=== PATIENT | female | born 1990 | race American Indian/Alaskan Native ===

== ENCOUNTER 2017-08-01 13:37 | Observation (INO) | payer OTHER ==
[2017-08-01 13:39] VITALS: BMI 28.3
[2017-08-01] MEDS ORDERED: Sodium Chloride 0.9% 1,000 ML IV STA (14:13)
[2017-08-01] MEDS ORDERED: Iohexol 350 MG/100 ML VIAL ONE (14:36)
--- NOTE | 2017-08-01 14:44 | ED PDOC ---
Arrival/HPI - General Historian: Patient EM Caveat: Uncooperative <Navi Rangel - Last Filed: 08/01/17 22:29> <Reuben Monroe DO - Last Filed: 08/01/17 22:38> - General Chief Complaint: GI Problem Time Seen by Provider: 08/01/17 14:02 - History of Present Illness Narrative History of Present Illness (Text): 08/01/17 14:39 27F presents to [facility] w/ continuous nausea, vomiting since 07/24/17. Patient was admitted in [place] on the . During that time they did 2 CT scans and Abx and discharged in stable condition on 07/30/17. Patient then had continued nausea and non-bloody, non-bilious vomiting, and loose stool. Patient states the only thing that has been able to help is Morphine. Denies: Fevers, Chills, chest pain, shortness of breath, numbness/tingling in extremities PMH: Denies PSH: none ALL: PCN Social: has 3 kids. smokes 1/2 ppd for >5 years. Daily marijuana use. denies other recreational drug use Vital signs reviewed: vital signs normal. No tachy or HTN (Navi Rangel) Past Medical History - Provider Review Nursing Documentation Reviewed: Yes - Travel History Have you recently traveled outside [place] w/in the past 3 mons?: No - Cardiac Hx Cardiac Disorders: No - Pulmonary Hx Respiratory Disorders: No - Neurological Hx Neurological Disorder: No - HEENT Hx HEENT Disorder: No - Renal Hx Renal Disorder: No - Endocrine/Metabolic Hx Endocrine Disorders: No - Hematological/Oncological Hx Blood Disorders: No - Integumentary Hx Dermatological Disorder: No - Musculoskeletal/Rheumatological Hx Musculoskeletal Disorders: No - Gastrointestinal Hx Gastrointestinal Disorders: Yes Hx Gastritis: Yes - Genitourinary/Gynecological Hx Genitourinary Disorders: No - Psychiatric Hx Psychophysiologic Disorder: No Hx Substance Use: Yes <Navi Rangel - Last Filed: 08/01/17 22:29> Family/Social History - Physician Review Nursing Documentation Reviewed: Yes Family/Social History: No Known Family HX Smoking Status: Light Smoker < 10 Cigarettes Daily Hx Alcohol Use: No Hx Substance Use: Yes Substance used: marijuana <Navi Rangel - Last Filed: 08/01/17 22:29> Allergies/Home Meds <Christal Rangeln - Last Filed: 08/01/17 22:29> <Reuben Monroe DO - Last Filed: 08/01/17 22:38> Allergies/Adverse Reactions: Allergies Penicillins Allergy (Verified 08/01/17 13:40) RASH Home Medications: Home Meds Medication Instructions Recorded Confirmed No Known Home Med 08/01/17 08/01/17 Review of Systems - Review of Systems Constitutional: Normal Eyes: Normal ENT: Normal Respiratory: Normal Cardiovascular: Normal Gastrointestinal: Abdominal Pain, Diarrhea, Nausea, Vomiting Genitourinary Female: Normal Musculoskeletal: Normal Skin: Normal Neurological: Normal <Ana Rangelsan - Last Filed: 08/01/17 22:29> Physical Exam Vital Signs Reviewed: Yes Temperature: Afebrile Blood Pressure: Normal Pulse: Regular Respiratory Rate: Normal Appearance: Positive for: Well-Appearing, Non-Toxic, Uncomfortable Pain Distress: Moderate Mental Status: Positive for: Alert and Oriented X 3 - Systems Exam Head: Present: Atraumatic, Other (hyperpigmentation malar ) Pupils: Present: PERRL Extroacular Muscles: Present: EOMI Conjunctiva: Present: Normal Mouth: Present: Moist Mucous Membranes Neck: Present: Normal Range of Motion Respiratory/Chest: Present: Clear to Auscultation, Good Air Exchange. No: Respiratory Distress, Accessory Muscle Use Cardiovascular: Present: Regular Rate and Rhythm, Normal S1, S2. No: Murmurs Abdomen: Present: Tenderness, Normal Bowel Sounds, Rebound, Other (Voluntary guarding). No: Distention, Peritoneal Signs Upper Extremity: Present: Normal Inspection, NORMAL PULSES, Capillary Refill < 2s Lower Extremity: Present: Normal Inspection, NORMAL PULSES Neurological: Present: GCS=15, Speech Normal Skin: Present: Warm Psychiatric: Present: Alert, Oriented x 3 <Ana Rangelsan - Last Filed: 08/01/17 22:29> Vital Signs Temp Pulse Resp BP Pulse Ox 08/01/17 20:05 76 18 130/90 98 08/01/17 17:00 66 18 138/71 100 08/01/17 15:57 64 18 142/78 100 08/01/17 13:37 97.9 F 62 18 144/89 100 Medical Decision Making Re-evaluation Time: 16:00 (Patient is sleeping upon re-exmination, resting comfortably) <Navi Rangel - Last Filed: 08/01/17 22:29> <Reuben Monroe DO - Last Filed: 08/01/17 22:38> ED Course and Treatment: 08/01/17 14:[address] scan Kevin Alonzo (Navi Rangel) - Lab Interpretations Lab Results: 08/01/17 14:30 08/01/17 14:30 Lab Results 08/01/17 15:00: Urine Opiates Screen Negative, Urine Methadone Screen Negative, Ur Barbiturates Screen Negative, Ur Phencyclidine Scrn Negative, Ur Amphetamines Screen Negative, U Benzodiazepines Scrn Negative, U Oth Cocaine Metabols Negative, U Cannabinoids Screen Positive H 08/01/17 14:30: Sodium 144, Potassium 3.4 L, Chloride 103, Carbon Dioxide 27, Anion Gap 17, BUN 5 L, Creatinine 0.8, Est GFR ( Amer) > 60, Est GFR (Non -Af Amer) > 60, Random Glucose 117 H, Calcium 10.3, Total Bilirubin 0.3, AST 54 H, ALT 48, Alkaline Phosphatase 70, Total Protein 8.2, Albumin 4.3, Globulin 4.0 , Albumin/Globulin Ratio 1.1, Lipase 42 08/01/17 14:30: Urine Color Yellow, Urine Appearance Clear, Urine pH 8.5, Ur Specific [place] 1.015, Urine Protein Negative, Urine Glucose (UA) Negative, Urine Ketones Trace H, Urine Blood Negative, Urine Nitrate Negative, Urine Bilirubin Negative, Urine Urobilinogen 0.2, Ur Leukocyte Esterase Negative 08/01/17 14:30: WBC 8.1, RBC 4.54, Hgb 12.9, Hct 38.7, MCV 85.2, MCH 28.4, MCHC 33.3, RDW 13.4, Plt Count 425, MPV 8.8, Gran % 69.7 H, Lymph % (Auto) 24.3, [place] % (Auto) 4.1, Eos % (Auto) 1.5, Baso % (Auto) 0.4, Gran # 5.63, Lymph # ( Auto) 2.0, [place] # (Auto) 0.3, Eos # (Auto) 0.1, Baso # (Auto) 0.03 - RAD Interpretation Narrative RAD Interpretations (Text): 08/01/17 22:[address] scan of abdomen: shows old contrast in appendix. Scan was read as possible multiple appendicoliths, and need to rule out appendicitis. (Navi Rangel) Radiology Orders: 08/01/17 18:54 ABD & PELVIS W/O PO OR IV CONT [CT] Stat - Medication Orders Current Medication Orders: Hydromorphone HCl (Dilaudid) 0.5 mg IVP Q4H PRN PRN Reason: Pain, severe (8-10) Last Admin: 08/01/17 21:40 Dose: 0.5 mg MAR Pain Assessment Document 08/01/17 21:40 RD (Rec: 08/01/17 21:40 RD [id number]) Pain Reassessment Is this a pain reassessment? No Sleep Is patient sleeping during reassessment? No Presence of Pain Presence of Pain Yes IVP Administration Document 08/01/17 21:40 RD (Rec: 08/01/17 21:40 RD [id number]) Charges for Administration # of IVP Administrations 1 Ciprofloxacin (Cipro 200mg/100ml D5w) 100 mls @ 67 mls/hr IVPB Q12 ELIJAH PRN Reason: Protocol Stop: 08/02/17 00:00 Metronidazole (Flagyl) 250 mg in 50 mls @ 100 mls/hr IVPB Q8 ELIJAH PRN Reason: Protocol Stop: 08/06/17 22:31 Sodium Chloride (Sodium Chloride 0.9%) 1,000 mls @ 100 mls/hr IV .Q10H ELIJAH Ondansetron HCl (Zofran Inj) 4 mg IVP Q4 PRN PRN Reason: Nausea/Vomiting Discontinued Medications Famotidine (Pepcid) 20 mg IVP STAT STA Stop: 08/01/17 14:18 Last Admin: 08/01/17 14:40 Dose: 20 mg IVP Administration Document 08/01/17 14:40 MS (Rec: 08/01/17 14:40 MS [id number]) Charges for Administration # of IVP Administrations 1 Sodium Chloride (Sodium Chloride 0.9%) 1,000 mls @ 1,000 mls/hr IV .Q1H STA Stop: 08/01/17 15:12 Last Admin: 08/01/17 14:39 Dose: 1,000 mls/hr eMAR Start Stop Document 08/01/17 14:39 MS (Rec: 08/01/17 14:40 MS [id number]) Intravenous Solution Start Date 08/01/17 Start Time 14:39 End Date 08/01/17 End time 15:39 Total Infusion Time 60 Ondansetron HCl (Zofran Inj) 8 mg IVP STAT STA Stop: 08/01/17 14:14 Last Admin: 08/01/17 14:40 Dose: 8 mg IVP Administration Document 08/01/17 14:40 MS (Rec: 08/01/17 14:40 MS [id number]) Charges for Administration # of IVP Administrations 1 - PA / [employer] / Resident Statement JAVIER has reviewed & agrees with the documentation as recorded. JAVIER has examined the patient and agrees with the treatment plan. <Navi Rangel - Last Filed: 08/01/17 22:29> - PA / [employer] / Resident Statement JAVIER has reviewed & agrees with the documentation as recorded. JAVIER has examined the patient and agrees with the treatment plan. <Reuben Monroe DO - Last Filed: 08/01/17 22:38> Disposition/Present on Arrival - Present on Arrival Any Indicators Present on Arrival: Yes History of DVT/PE: No History of Uncontrolled Diabetes: No Urinary Catheter: No History of Decub. Ulcer: No History Surgical Site Infection Following: None - Disposition Have Diagnosis and Disposition been Completed?: Yes Disposition Time: 22:33 Patient Plan: Admission, Observation <Navi Rangel - Last Filed: 08/01/17 22:29> - Disposition Disposition Time: 21:00 <Reuben Monroe DO - Last Filed: 08/01/17 22:38> - Disposition Diagnosis: Abdominal pain, Appendicitis, unqualified Patient Problems: Current Active Problems Problem Status Onset Abdominal pain Acute Appendicitis, unqualified Acute Condition: STABLE Referrals: Appwapp Alvin Rekiley, [Primary Care Provider] - Follow up with primary Forms: [employer] (Armenian)
[2017-08-01 16:20] LABS: BASO # 0.03 K/mm3 (0.0-2.0); BASO % 0.4 % (0.0-3.0); EOS # 0.1 (0.0-0.7); EOS % 1.5 % (1.5-5.0); GRAN # 5.63 (1.4-6.5); GRAN % 69.7 % (50.0-68.0); HEMOGLOBIN 12.9 g/dL (12.0-16.0); LYMPH % 24.3 % (22.0-35.0); MEAN CELL VOLUME 85.2 fl (80.0-105.0); MEAN CORPUSCULAR HEMOGLOBIN 28.4 pg (25.0-35.0); MEAN CORPUSCULAR HGB CONC 33.3 g/dl (31.0-37.0); MEAN PLATELET VOLUME 8.8 fl (7.0-11.0); MONO # 0.3 (0.1-0.6); MONO % 4.1 % (1.0-6.0); RBC 4.54 10^6/uL (3.5-6.1); RED CELL DISTRIBUTION WIDTH 13.4 % (11.5-14.5); WHITE BLOOD COUNT 8.1 10^3/ul (4.5-11.0)
[2017-08-01 16:21] LABS: PH,URINE 8.5 (4.7-8.0); URINE BILIRUBIN NEGATIVE (NEGATIVE); URINE BLOOD NEGATIVE (NEGATIVE); URINE GLUCOSE (UA) NEGATIVE (NEGATIVE); URINE LEUKOCYTE ESTERASE NEGATIVE Leu/uL (NEGATIVE); URINE NITRATE NEGATIVE (NEGATIVE); URINE PROTEIN NEGATIVE mg/dL (<30 mg/dL); URINE UROBILINOGEN 0.2 E.U./dL (<1 E.U./dL)
[2017-08-01 16:25] LABS: URINE APPEARANCE CLEAR (CLEAR); URINE COLOR YELLOW (YELLOW)
[2017-08-01 16:29] LABS: ALB/GLOB RATIO 1.1 (1.1-1.8); ALBUMIN 4.3 g/dL (3.0-4.8); ALT/SGPT 48 U/L (7-56); AST/SGOT 54 U/L (14-36); BLOOD UREA NITROGEN 5 mg/dL (7-21); CALCIUM 10.3 mg/dL (8.4-10.5); GFR AFRICAN-AMERICAN > 60; GFR NON-AFRICAN AMERICAN > 60; LIPASE 42 U/L (23-300)
[2017-08-01 17:14] LABS: BARBITURATES, UR NEGATIVE (NEGATIVE); BENZODIAZEPINES, UR NEGATIVE (NEGATIVE); OPIATES, UR NEGATIVE (NEGATIVE); PHENCYCLIDINE, UR NEGATIVE (NEGATIVE)
--- NOTE | 2017-08-01 20:08 | CT ---
EXAM: CT Abdomen and Pelvis Without Intravenous Contrast EXAM DATE/TIME: 08/01/2017 6:54 PM CLINICAL HISTORY: The patient age is 27 years old and is female; Pain; Abdominal pain; Generalized; Patient HX: HX gastritis; Additional info: Diffuse abdominal pain Facility exam id and description: Ct abdpelscon abd pelvis w/o po or iv cont TECHNIQUE: Axial computed tomography images of the abdomen and pelvis without intravenous contrast. All CT scans at this facility use one or more dose reduction techniques, viz.: automated exposure control; ma/kV adjustment per patient size (including targeted exams where dose is matched to indication; i.e. head); or iterative reconstruction technique. Coronal and sagittal reformatted images were created and reviewed. COMPARISON: No relevant prior studies available. FINDINGS: Lower thorax: There is a mild to moderate-sized hiatal hernia, with wall thickening of this hernia and the distal esophagus. This wall thickening is likely inflammatory, although additional pathology cannot be excluded. ABDOMEN: Liver: Unremarkable. No mass. Gallbladder and bile ducts: No calcified stones. No ductal dilation. Pancreas: Normal contour. No ductal dilation. Spleen: No splenomegaly. Adrenals: No mass. Kidneys and ureters: No obstructing stones. No hydronephrosis. Stomach and bowel: A gastric diverticulum is visualized posteriorly. Evaluation of the bowel is limited by the absence of oral contrast. Appendix: There is an increase in density within the appendix, consistent with residual prior oral contrast ministration or appendicoliths. There is minimal periappendiceal stranding, without significant appendiceal distention. Early appendicitis cannot be excluded. PELVIS: Bladder: No stones. Reproductive: The uterus is retroverted. ABDOMEN and PELVIS: Intraperitoneal space: A small amount of free fluid is seen within the cul-de-sac. Bones/joints: Mild disc bulging is visualized at L5-S1. Soft tissues: There is diastases of the rectus abdominis musculature with mild eventration of the abdominal wall. Vasculature: No abdominal aortic aneurysm. Lymph nodes: No enlarged lymph nodes. IMPRESSION: 1. There is a mild to moderate-sized hiatal hernia, with wall thickening of this hernia and the distal esophagus. This wall thickening is likely inflammatory, although additional pathology cannot be excluded. 2. There is an increase in density within the appendix, consistent with residual prior oral contrast ministration or appendicoliths. There is minimal periappendiceal stranding, without significant appendiceal distention. Early appendicitis cannot be excluded. Clinical correlation is recommended. 3. A gastric diverticulum is visualized posteriorly. 4. A small amount of free fluid is seen within the cul-de-sac. This can be further evaluated with ultrasound. 5. Incidental/non-acute findings are described above.
[2017-08-01] MEDS ORDERED: HYDROmorphone 0.5 mg/0.5 ml ISec IVP PRN (21:23)
[2017-08-01] MEDS ORDERED: Ciprofloxacin 200mg/100ml D5W 100 ML IVPB SCH (22:30)
[2017-08-01] MEDS: metroNIDAZOLE IV 250mg/50 ml 250 MG/50 ML BAG IVPB SCH (22:50)
--- NOTE | 2017-08-01 23:08 | CP.PCM.HP ---
<Ronn Wallace - Last Filed: 08/02/17 06:19> History of Present Illness - History of Present Illness History of Present Illness: Haroon Limsirisha PGY-1 H&P CC: Abdominal Pain HPI: Patient is a 27 year old female with past medical history of gastroenteritis who presents by private vehicle with complaints of abdominal pain, nausea and vomiting for the past 2 weeks. Patient indicates abdominal pain is diffuse in nature, constant and dull. She indicates pain is worsened with movement and is made better with rest and laying flat. She denies taking any medications for her symptoms. Patient was recently admitted to [place] where according to records [address] scans were preformed. The patient was discharged with antibiotics on 07/30/2017. Patient reports since discharge she has had continued nausea, non-bloody, non-bilious vomiting as well as diarrhea. Patient reports being able to tolerate a liquid diet intermittently. Patient denies blood in her stool as well as vaginal discharge. Date of last menstrual period is 07/19/2017. Patient denies chest pain, shortness of breath, fever, chills, constipation. Of note patient reports fluctuating episodes similar to presenting symptoms for the past 2 years. PMH: Denies PSH: Denies Sochx: Tobacco: 0.5 PPD for past > 5 years ETOH: Denies ID: THC daily, denies IVDA ALL: PCN MEDS: Denies PMD: None Present on Admission - Present on Admission Any Indicators Present on Admission: No Review of Systems - Review of Systems All systems: reviewed and no additional remarkable complaints except (as mentioned in HPI) Past Patient History - Past Social History Smoking Status: Light Smoker < 10 Cigarettes Daily Alcohol: None Drugs: Cannabis - CARDIAC Hx Cardiac Disorders: No - PULMONARY Hx Respiratory Disorders: No - NEUROLOGICAL Hx Neurological Disorder: No - HEENT Hx HEENT Problems: No - RENAL Hx Chronic Kidney Disease: No - ENDOCRINE/METABOLIC Hx Endocrine Disorders: No - HEMATOLOGICAL/ONCOLOGICAL Hx Blood Disorders: No - INTEGUMENTARY Hx Dermatological Problems: No - MUSCULOSKELETAL/RHEUMATOLOGICAL Hx Musculoskeletal Disorders: No - GASTROINTESTINAL Hx Gastrointestinal Disorders: Yes Hx Gastritis: Yes - GENITOURINARY/GYNECOLOGICAL Hx Genitourinary Disorders: No - PSYCHIATRIC Hx Psychophysiologic Disorder: No Hx Substance Use: Yes - SURGICAL HISTORY Hx Surgeries: No Meds Allergies/Adverse Reactions: Allergies Allergy/AdvReac Type Severity Reaction Status Date / Time Penicillins Allergy RASH Verified 08/01/17 13:40 Physical Exam - Constitutional Appears: Non-toxic - Head Exam Head Exam: ATRAUMATIC, NORMAL INSPECTION, NORMOCEPHALIC - Eye Exam Eye Exam: EOMI, PERRL - ENT Exam ENT Exam: Mucous Membranes Dry - Neck Exam Neck exam: Positive for: Full Rom - Respiratory Exam Respiratory Exam: Clear to Auscultation Bilateral, NORMAL BREATHING PATTERN. absent: Rales, Rhonchi, Wheezes - Cardiovascular Exam Cardiovascular Exam: REGULAR RHYTHM, +S1, +S2 - GI/Abdominal Exam GI & Abdominal Exam: Guarding (voluntary ), Normal Bowel Sounds, Soft, Tenderness (diffuse ). absent: Distended, Rigid - Extremities Exam Extremities exam: Positive for: normal inspection, pedal pulses present - Back Exam Back exam: NORMAL INSPECTION. absent: CVA tenderness (L), CVA tenderness (R) - Neurological Exam Neurological exam: Alert, Oriented x3 Additional comments: Motor and sensory grossly intact, patient able to follow simple commands, able to move all four extremities past midline - Psychiatric Exam Psychiatric exam: Normal Affect, Normal Mood - Skin Skin Exam: Dry, Intact Results - Vital Signs Recent Vital Signs: Last Vital Signs Temp 97.9 F 08/01/17 13:37 Pulse 71 08/01/17 22:39 Resp 18 08/01/17 22:39 BP 131/87 08/01/17 22:39 Pulse Ox 99 08/01/17 22:39 - Labs Result Diagrams: 08/01/17 14:30 08/01/17 14:30 Labs: Laboratory Results - last 24 hr 08/01/17 08/01/17 08/01/17 14:30 14:30 14:30 WBC 8.1 RBC 4.54 Hgb 12.9 Hct 38.7 MCV 85.2 MCH 28.4 MCHC 33.3 RDW 13.4 Plt Count 425 MPV 8.8 Gran % 69.7 H Lymph % (Auto) 24.3 [place] % (Auto) 4.1 Eos % (Auto) 1.5 Baso % (Auto) 0.4 Gran # 5.63 Lymph # (Auto) 2.0 [place] # (Auto) 0.3 Eos # (Auto) 0.1 Baso # (Auto) 0.03 Sodium 144 Potassium 3.4 L Chloride 103 Carbon Dioxide 27 Anion Gap 17 BUN 5 L Creatinine 0.8 Est GFR ( Amer) > 60 Est GFR (Non-Af Amer) > 60 Random Glucose 117 H Calcium 10.3 Total Bilirubin 0.3 AST 54 H ALT 48 Alkaline Phosphatase 70 Total Protein 8.2 Albumin 4.3 Globulin 4.0 Albumin/Globulin Ratio 1.1 Lipase 42 Urine Color Yellow Urine Appearance Clear Urine pH 8.5 Ur Specific [place] 1.015 Urine Protein Negative Urine Glucose (UA) Negative Urine Ketones Trace H Urine Blood Negative Urine Nitrate Negative Urine Bilirubin Negative Urine Urobilinogen 0.2 Ur Leukocyte Esterase Negative Urine Opiates Screen Urine Methadone Screen Ur Barbiturates Screen Ur Phencyclidine Scrn Ur Amphetamines Screen U Benzodiazepines Scrn U Oth Cocaine Metabols U Cannabinoids Screen 08/01/17 15:00 WBC RBC Hgb Hct MCV MCH MCHC RDW Plt Count MPV Gran % Lymph % (Auto) [place] % (Auto) Eos % (Auto) Baso % (Auto) Gran # Lymph # (Auto) [place] # (Auto) Eos # (Auto) Baso # (Auto) Sodium Potassium Chloride Carbon Dioxide Anion Gap BUN Creatinine Est GFR ( Amer) Est GFR (Non-Af Amer) Random Glucose Calcium Total Bilirubin AST ALT Alkaline Phosphatase Total Protein Albumin Globulin Albumin/Globulin Ratio Lipase Urine Color Urine Appearance Urine pH Ur Specific [place] Urine Protein Urine Glucose (UA) Urine Ketones Urine Blood Urine Nitrate Urine Bilirubin Urine Urobilinogen Ur Leukocyte Esterase Urine Opiates Screen Negative Urine Methadone Screen Negative Ur Barbiturates Screen Negative Ur Phencyclidine Scrn Negative Ur Amphetamines Screen Negative U Benzodiazepines Scrn Negative U Oth Cocaine Metabols Negative U Cannabinoids Screen Positive H Assessment & Plan - Assessment and Plan (Free Text) Assessment: 27 year old female with past medical history that includes gastroenteritis who presents by private vehicle complaining of abdominal pain ongoing for past few weeks. Patient evaluated in ED and abdominal CT showing increased density within appendix with suspicious for appendicitis. General surgery has been consulted. Patient will be admitted for further medical management and observation. Plan: 1. Abdominal Pain - Etiology: Gastroenteritis vs. appendicitis vs. PID - Abdominal CT without contrast showign old contrast in appendix, read showing suspicion for appendicitis, negative for intra abdominal adhesions - Patient refused abd CT with PO and IV contrast - General surgey consulted, recs appreciated - Continue with NPO, IVF, Cipro, flagyl, analgesics - UA showing trace ketone, negative for nitrate and leuk est - Denies history of STD - Protonix 2. Hypokalemia - 3.4 on admission - asymptomatic, continue to monitor - 20 potassium meQ DVT ppx: SCD GI PPx: Protonix Case and plan discussed and reviewed with attending - Date & Time Date: 08/01/17 Time: 23:32 <Jose Juan Iqbal Eri - Last Filed: 08/03/17 05:48> Results - Vital Signs Recent Vital Signs: Last Vital Signs Temp 98.6 F 08/02/17 16:48 Pulse 58 L 08/02/17 16:48 Resp 20 08/02/17 16:48 BP 118/76 08/02/17 16:48 Pulse Ox 99 08/02/17 16:48 - Labs Result Diagrams: 08/02/17 07:00 08/02/17 07:00 Labs: Laboratory Results - last 24 hr 08/02/17 08/02/17 08/02/17 07:00 07:00 07:00 WBC 9.2 RBC 3.80 Hgb 10.5 L D Hct 32.4 L MCV 85.3 MCH 27.6 MCHC 32.4 RDW 13.7 Plt Count 350 MPV 8.5 Gran % 53.6 Lymph % (Auto) 37.1 H [place] % (Auto) 7.2 H Eos % (Auto) 1.8 Baso % (Auto) 0.3 Gran # 4.92 Lymph # (Auto) 3.4 [place] # (Auto) 0.7 H Eos # (Auto) 0.2 Baso # (Auto) 0.03 PT 17.4 H INR 1.50 H Sodium 137 Potassium 2.9 L* Chloride 101 Carbon Dioxide 28 Anion Gap 11 BUN 6 L Creatinine 0.7 Est GFR ( Amer) > 60 Est GFR (Non-Af Amer) > 60 Random Glucose 90 Lactic Acid Calcium 8.7 Total Bilirubin 0.2 AST 54 H ALT 46 Alkaline Phosphatase 47 Total Protein 6.3 Albumin 3.1 Globulin 3.2 Albumin/Globulin Ratio 1.0 L 08/02/17 19:20 WBC RBC Hgb Hct MCV MCH MCHC RDW Plt Count MPV Gran % Lymph % (Auto) [place] % (Auto) Eos % (Auto) Baso % (Auto) Gran # Lymph # (Auto) [place] # (Auto) Eos # (Auto) Baso # (Auto) PT INR Sodium Potassium Chloride Carbon Dioxide Anion Gap BUN Creatinine Est GFR ( Amer) Est GFR (Non-Af Amer) Random Glucose Lactic Acid 0.6 L Calcium Total Bilirubin AST ALT Alkaline Phosphatase Total Protein Albumin Globulin Albumin/Globulin Ratio
[2017-08-01] MEDS: Sodium Chloride 0.9% 1,000 ML IV SCH (23:12)
[2017-08-01] MEDS ORDERED: Morphine 4 mg/ml ISec IVP PRN (23:26)
[2017-08-02] MEDS: Morphine 4 mg/ml ISec IVP PRN ×5 (01:23→20:34)
[2017-08-02] MEDS: metroNIDAZOLE IV 250mg/50 ml 250 MG/50 ML BAG IVPB SCH (06:13)
[2017-08-02 07:36] VITALS: RESP 20
[2017-08-02 07:40] LABS: BASO # 0.03 K/mm3 (0.0-2.0); BASO % 0.3 % (0.0-3.0); EOS # 0.2 (0.0-0.7); EOS % 1.8 % (1.5-5.0); GRAN # 4.92 (1.4-6.5); GRAN % 53.6 % (50.0-68.0); LYMPH # 3.4 (1.2-3.4); LYMPH % 37.1 % (22.0-35.0); MEAN CELL VOLUME 85.3 fl (80.0-105.0); MEAN CORPUSCULAR HEMOGLOBIN 27.6 pg (25.0-35.0); MEAN CORPUSCULAR HGB CONC 32.4 g/dl (31.0-37.0); MEAN PLATELET VOLUME 8.5 fl (7.0-11.0); MONO # 0.7 (0.1-0.6); MONO % 7.2 % (1.0-6.0); RBC 3.8 10^6/uL (3.5-6.1); RED CELL DISTRIBUTION WIDTH 13.7 % (11.5-14.5); WHITE BLOOD COUNT 9.2 10^3/ul (4.5-11.0)
[2017-08-02 07:41] LABS: HEMOGLOBIN 10.5 g/dL (12.0-16.0); INR 1.5 (0.93-1.08); PROTHROMBIN TIME 17.4 SECONDS (9.4-12.5)
[2017-08-02 07:59] LABS: ALBUMIN 3.1 g/dL (3.0-4.8); ALT/SGPT 46 U/L (7-56); AST/SGOT 54 U/L (14-36); BLOOD UREA NITROGEN 6 mg/dL (7-21); CALCIUM 8.7 mg/dL (8.4-10.5); GFR AFRICAN-AMERICAN > 60; GFR NON-AFRICAN AMERICAN > 60
[2017-08-02] MEDS ORDERED: Potassium Chloride 20 mEq ER Tab PO STA (08:17)
--- NOTE | 2017-08-02 08:56 | CP.PCM.CON ---
<Radha Schneider - Last Filed: 08/02/17 10:24> History of Present Illness - History of Present Illness History of Present Illness: Surgery HPI: Patient is a 27 year old female with past medical history of gastroenteritis who presents with complaints of abdominal pain, nausea and vomiting for the past 2 weeks. Patient indicates abdominal pain is diffuse in nature, constant and dull. She indicates pain is worsened with movement and is made better with rest and laying flat. She denies taking any medications for her symptoms. Patient was recently admitted to [facility] 07/24/17 where according to records [address] scans were preformed. The patient was discharged with antibiotics on 07/30/2017. Patient reports since discharge she has had continued nausea, non-bloody, non-bilious vomiting as well as diarrhea. Patient reports being able to tolerate a liquid diet intermittently. Patient denies blood in her stool as well as vaginal discharge. Date of last menstrual period is 2017. Patient denies chest pain, shortness of breath, fever, chills, constipation. Of note patient reports fluctuating episodes similar to presenting symptoms for the past 2 years. PMH: Denies PSH: Denies Sochx: Tobacco: 0.5 PPD for past > 5 years ETOH: Denies ID: THC daily, denies IVDA ALL: PCN MEDS: Denies PMD: None Past Patient History - Past Social History Smoking Status: Light Smoker < 10 Cigarettes Daily Alcohol: None Drugs: Cannabis - CARDIAC Hx Cardiac Disorders: No - PULMONARY Hx Respiratory Disorders: No - NEUROLOGICAL Hx Neurological Disorder: No - HEENT Hx HEENT Problems: No - RENAL Hx Chronic Kidney Disease: No - ENDOCRINE/METABOLIC Hx Endocrine Disorders: No - HEMATOLOGICAL/ONCOLOGICAL Hx Blood Disorders: No - INTEGUMENTARY Hx Dermatological Problems: No - MUSCULOSKELETAL/RHEUMATOLOGICAL Hx Musculoskeletal Disorders: No - GASTROINTESTINAL Hx Gastrointestinal Disorders: Yes Hx Gastritis: Yes - GENITOURINARY/GYNECOLOGICAL Hx Genitourinary Disorders: No - PSYCHIATRIC Hx Psychophysiologic Disorder: No Hx Substance Use: Yes - SURGICAL HISTORY Hx Surgeries: No Meds Allergies/Adverse Reactions: Allergies Allergy/AdvReac Type Severity Reaction Status Date / Time Penicillins Allergy RASH Verified 08/01/17 13:40 - Medications Medications: Current Medications Metronidazole (Flagyl) 250 mg in 50 mls @ 100 mls/hr IVPB Q8 ELIJAH PRN Reason: Protocol Stop: 08/06/17 22:31 Last Admin: 08/02/17 06:13 Dose: 100 mls/hr Sodium Chloride (Sodium Chloride 0.9%) 1,000 mls @ 100 mls/hr IV .Q10H [facility] Last Admin: 08/01/17 23:12 Dose: 100 mls/hr Potassium Chloride (Potassium Chloride 20 Meq/100 Ml) 20 meq in 100 mls @ 50 mls/hr IVPB ONCE ONE Stop: 08/02/17 10:16 Ciprofloxacin (Cipro 400mg/200ml Dsw) 400 mg in 200 mls @ 133.3 mls/hr IVPB Q12 ELIJAH PRN Reason: Protocol Stop: 08/02/17 23:31 Morphine Sulfate (Morphine) 4 mg IVP Q4H PRN PRN Reason: Pain, severe (8-10) Last Admin: 08/02/17 06:14 Dose: 4 mg Ondansetron HCl (Zofran Inj) 4 mg IVP Q4 PRN PRN Reason: Nausea/Vomiting Last Admin: 08/02/17 06:14 Dose: 4 mg Pantoprazole Sodium (Protonix Inj) 40 mg IVP DAILY [facility] Results - Vital Signs Recent Vital Signs: Last Vital Signs Temp 98.3 F 08/02/17 07:35 Pulse 66 08/02/17 07:35 Resp 20 08/02/17 07:35 BP 125/77 08/02/17 07:35 Pulse Ox 100 08/02/17 07:35 - Labs Result Diagrams: 08/02/17 07:00 08/02/17 07:00 Labs: Laboratory Results - last 24 hr 08/02/17 08/02/17 08/02/17 07:00 07:00 07:00 WBC 9.2 RBC 3.80 Hgb 10.5 L D Hct 32.4 L MCV 85.3 MCH 27.6 MCHC 32.4 RDW 13.7 Plt Count 350 MPV 8.5 Gran % 53.6 Lymph % (Auto) 37.1 H [place] % (Auto) 7.2 H Eos % (Auto) 1.8 Baso % (Auto) 0.3 Gran # 4.92 Lymph # (Auto) 3.4 [place] # (Auto) 0.7 H Eos # (Auto) 0.2 Baso # (Auto) 0.03 PT 17.4 H INR 1.50 H Sodium 137 Potassium 2.9 L* Chloride 101 Carbon Dioxide 28 Anion Gap 11 BUN 6 L Creatinine 0.7 Est GFR ( Amer) > 60 Est GFR (Non-Af Amer) > 60 Random Glucose 90 Calcium 8.7 Total Bilirubin 0.2 AST 54 H ALT 46 Alkaline Phosphatase 47 Total Protein 6.3 Albumin 3.1 Globulin 3.2 Albumin/Globulin Ratio 1.0 L Assessment & Plan - Assessment and Plan (Free Text) Assessment: gastroenteritis v r/o appy -NPO -IVF -ABX -Pain managegment DW Dr. Borges <Delano Borges - Last Filed: 08/03/17 11:41> Meds - Medications Medications: Current Medications Sodium Chloride (Sodium Chloride 0.9%) 1,000 mls @ 100 mls/hr IV .Q10H [facility] Last Admin: 08/03/17 05:34 Dose: 100 mls/hr Metronidazole (Flagyl) 500 mg in 100 mls @ 100 mls/hr IVPB Q8 ELIJAH PRN Reason: Protocol Last Admin: 08/03/17 05:33 Dose: 100 mls/hr Levofloxacin/Dextrose (Levaquin 500mg) 500 mg in 100 mls @ 100 mls/hr IVPB DAILY [facility] PRN Reason: Protocol Last Admin: 08/03/17 10:03 Dose: 100 mls/hr Ibuprofen (Motrin Tab) 600 mg PO Q6H PRN PRN Reason: Pain, severe (8-10) Ondansetron HCl (Zofran Inj) 4 mg IVP Q4 PRN PRN Reason: Nausea/Vomiting Last Admin: 08/03/17 05:41 Dose: 4 mg Pantoprazole Sodium (Protonix Inj) 40 mg IVP DAILY [facility] Last Admin: 08/03/17 10:03 Dose: 40 mg Polyethylene Glycol (Miralax) 17 gm PO DAILY [facility] Sucralfate (Carafate Oral Susp) 1 gm PO 0630,1130,1630,2200 [facility] Results - Vital Signs Recent Vital Signs: Last Vital Signs Temp 98.2 F 08/03/17 09:09 Pulse 59 L 08/03/17 09:09 Resp 20 08/03/17 09:09 BP 116/73 08/03/17 09:09 Pulse Ox 100 08/03/17 09:09 - Labs Result Diagrams: 08/03/17 05:45 08/03/17 08:20 Labs: Laboratory Results - last 24 hr 08/02/17 08/03/17 08/03/17 19:20 05:45 08:20 WBC 6.7 D RBC 3.88 Hgb 10.6 L Hct 33.6 L MCV 86.6 MCH 27.3 MCHC 31.5 RDW 13.8 Plt Count 343 MPV 8.4 Gran % 39.8 L Lymph % (Auto) 51.3 H [place] % (Auto) 5.0 Eos % (Auto) 3.3 Baso % (Auto) 0.6 Gran # 2.68 Lymph # (Auto) 3.5 H [place] # (Auto) 0.3 Eos # (Auto) 0.2 Baso # (Auto) 0.04 Sodium 137 Potassium 3.4 L Chloride 101 Carbon Dioxide 26 Anion Gap 13 BUN 4 L Creatinine 0.7 Est GFR ( Amer) > 60 Est GFR (Non-Af Amer) > 60 Random Glucose 98 Lactic Acid 0.6 L Calcium 8.6 Total Bilirubin 0.1 L AST 48 H ALT 48 Alkaline Phosphatase 42 Total Protein 6.1 Albumin 3.1 Globulin 3.0 Albumin/Globulin Ratio 1.0 L Attending/Attestation - Attestation I have personally seen and examined this patient.: Yes I have fully participated in the care of the patient.: Yes I have reviewed all pertinent clinical information: Yes Notes (Text): Pt was seen and examined at bedside Agree with above note and assessment Pt with Abdominal Pain and Episodes of diarrhea 3 days ago Pt has tenderness of palpation No Peritoneal signs Labs and radiology reviewed No clinical evidence of Appendicitis No General surgical intervention required at present Start full liquid diet, advance diet as tolerated correct Potassium DC Plan C/w current mx Plan d.w pt in detail. Risk and benefit explained in detail
[2017-08-02] MEDS ORDERED: metroNIDAZOLE IV 250mg/50 ml 250 MG/50 ML BAG IVPB SCH (09:45)
[2017-08-02] MEDS ORDERED: cefTRIAXone 1 gm 1 GM/100 ML BAG IVPB SCH (10:00)
[2017-08-02] MEDS ORDERED: Ciprofloxacin 400mg/200ml D5W 400 MG/200 ML BAG IVPB SCH ×3 (10:00)
--- NOTE | 2017-08-02 11:16 | CP.PCM.PN ---
<Jasper Ricardo - Last Filed: 08/02/17 11:53> Subjective - Date & Time of Evaluation Date of Evaluation: 08/02/17 Time of Evaluation: 06:50 - Subjective Subjective: Patient seen and examined at bedside in acute distress stating she still has abdominal pain. Patient endorses she has had this pain several times in the past. Denies shortness of breath, chest pain, constipation. Objective - Vital Signs/Intake and Output Vital Signs (last 24 hours): Temp Pulse Resp BP Pulse Ox 98.3 F 66 20 125/77 100 08/02/17 07:35 08/02/17 07:35 08/02/17 07:35 08/02/17 07:35 08/02/17 07:35 Intake and Output: 08/02/17 08/02/17 06:59 18:59 Intake Total 800 Output Total 0 Balance 800 - Medications Medications: Current Medications Sodium Chloride (Sodium Chloride 0.9%) 1,000 mls @ 100 mls/hr IV .Q10H [facility] Last Admin: 08/01/17 23:12 Dose: 100 mls/hr Metronidazole (Flagyl) 250 mg in 50 mls @ 100 mls/hr IVPB Q8 ELIJAH PRN Reason: Protocol Stop: 08/07/17 09:46 Ciprofloxacin (Cipro 400mg/200ml Dsw) 400 mg in 200 mls @ 133.3 mls/hr IVPB Q12 ELIJAH PRN Reason: Protocol Stop: 08/02/17 11:31 Morphine Sulfate (Morphine) 4 mg IVP Q4H PRN PRN Reason: Pain, severe (8-10) Last Admin: 08/02/17 10:03 Dose: 4 mg Ondansetron HCl (Zofran Inj) 4 mg IVP Q4 PRN PRN Reason: Nausea/Vomiting Last Admin: 08/02/17 09:52 Dose: 4 mg Pantoprazole Sodium (Protonix Inj) 40 mg IVP DAILY [facility] Last Admin: 08/02/17 09:17 Dose: 40 mg - Labs Labs: 08/02/17 07:00 08/02/17 07:00 PT 17.4 SECONDS (9.4-12.5) H 08/02/17 07:00 INR 1.50 (0.93-1.08) H 08/02/17 07:00 - Constitutional Appears: In Acute Distress - Head Exam Head Exam: ATRAUMATIC, NORMAL INSPECTION, NORMOCEPHALIC - Eye Exam Eye Exam: EOMI, Normal appearance - ENT Exam ENT Exam: Mucous Membranes Moist - Neck Exam Neck Exam: Normal Inspection - Respiratory Exam Respiratory Exam: Clear to Ausculation Bilateral, NORMAL BREATHING PATTERN. absent: Rhonchi, Wheezes - Cardiovascular Exam Cardiovascular Exam: REGULAR RHYTHM, +S1, +S2 - GI/Abdominal Exam GI & Abdominal Exam: Soft, Tenderness (diffuse), Normal Bowel Sounds - Extremities Exam Extremities Exam: Normal Inspection - Back Exam Back Exam: NORMAL INSPECTION - Neurological Exam Neurological Exam: Alert, Awake, Oriented x3 - Psychiatric Exam Psychiatric exam: Agitated - Skin Skin Exam: Intact, Normal Color, Warm Assessment and Plan - Assessment and Plan (Free Text) Assessment: 27 year old female with past medical history that includes gastroenteritis who presents by private vehicle complaining of abdominal pain ongoing for past few weeks. Patient evaluated in ED and abdominal CT showing increased density within appendix with suspicious for early appendicitis as seen in previous CT abdomen/pelvis years prior. Plan: 1. Abdominal Pain - Etiology: Gastroenteritis vs. appendicitis vs. PID - Abdominal CT without contrast showing old contrast in appendix, read showing suspicion for early appendicitis as noted in previous abdominal readings from previous admissions, negative for intra abdominal adhesions - Patient refused abd CT with PO and IV contrast - General surgey consulted, recs appreciated - Continue with cipro and flagyl - Full liquid diet as per surgery - UA showing trace ketone, negative for UTI - Denies history of STD - Gastroenterology consulted; recommendations appreciated 2. Hypokalemia - 2.9; repleted with 40 KCL meq - asymptomatic, continue to monitor DVT ppx: SCD GI PPx: Protonix Case and plan discussed and reviewed with attending Patient's previous records can be found under the name Vikki Michaels <Gibran Henley - Last Filed: 08/02/17 14:42> Objective - Vital Signs/Intake and Output Vital Signs (last 24 hours): Temp Pulse Resp BP Pulse Ox 98.3 F 66 20 125/77 100 08/02/17 07:35 08/02/17 07:35 08/02/17 07:35 08/02/17 07:35 08/02/17 07:35 Intake and Output: 08/02/17 08/02/17 06:59 18:59 Intake Total 800 Output Total 0 Balance 800 - Medications Medications: Current Medications Sodium Chloride (Sodium Chloride 0.9%) 1,000 mls @ 100 mls/hr IV .Q10H [facility] Last Admin: 08/01/17 23:12 Dose: 100 mls/hr Metronidazole (Flagyl) 500 mg in 100 mls @ 100 mls/hr IVPB Q8 ELIJAH PRN Reason: Protocol Last Admin: 08/02/17 14:00 Dose: 100 mls/hr Levofloxacin/Dextrose (Levaquin 500mg) 500 mg in 100 mls @ 100 mls/hr IVPB DAILY [facility] PRN Reason: Protocol Morphine Sulfate (Morphine) 4 mg IVP Q4H PRN PRN Reason: Pain, severe (8-10) Last Admin: 08/02/17 10:03 Dose: 4 mg Ondansetron HCl (Zofran Inj) 4 mg IVP Q4 PRN PRN Reason: Nausea/Vomiting Last Admin: 08/02/17 09:52 Dose: 4 mg Pantoprazole Sodium (Protonix Inj) 40 mg IVP DAILY [facility] Last Admin: 08/02/17 09:17 Dose: 40 mg - Labs Labs: 08/02/17 07:00 08/02/17 07:00 PT 17.4 SECONDS (9.4-12.5) H 08/02/17 07:00 INR 1.50 (0.93-1.08) H 08/02/17 07:00 Attending/Attestation - Attestation I have personally seen and examined this patient.: Yes I have fully participated in the care of the patient.: Yes I have reviewed all pertinent clinical information, including history, physical exam and plan: Yes Notes (Text): I have seen and examined the patient at bedside. Agree with the above note with the following additions/ exceptions: Briefly this is 27 year old female with history of marijuana use, gastritis, hiatal hernia, multiple episodes of abdominal pain and gastroenteritis who came for evaluation of abdominal pain which started few days ago. Reports severe abdominal pain, nausea, vomiting and low appetite. CT scan revealed possible early appendicitis?. Surgery consult appreciated. Recommended to continue antibiotics at this time. No surgical intervention planned. Will start clear liquid diet. As these symptoms have been recurring according to the patient, GI consult is requested. Patient appears very upset and is not forthcoming in providing detailed history. Prior EGD done in 2016 revealed gastritis and Hpylori was negative. She never had colonoscopy. Denies family history of any medical problem. Upon discharge patient will follow up with PMD of choice. Dr Gibran henley
[2017-08-02] MEDS: metroNIDAZOLE IV 500 mg/100 ml 500 MG/100 ML BAG IVPB SCH ×2 (14:00→22:28)
[2017-08-03] MEDS: Morphine 4 mg/ml ISec IVP PRN ×3 (01:50→09:53)
[2017-08-03] MEDS: metroNIDAZOLE IV 500 mg/100 ml 500 MG/100 ML BAG IVPB SCH (05:33)
[2017-08-03] MEDS: Sodium Chloride 0.9% 1,000 ML IV SCH (05:34)
[2017-08-03 06:42] LABS: BASO # 0.04 K/mm3 (0.0-2.0); BASO % 0.6 % (0.0-3.0); EOS # 0.2 (0.0-0.7); EOS % 3.3 % (1.5-5.0); GRAN # 2.68 (1.4-6.5); GRAN % 39.8 % (50.0-68.0); HEMOGLOBIN 10.6 g/dL (12.0-16.0); LYMPH # 3.5 (1.2-3.4); LYMPH % 51.3 % (22.0-35.0); MEAN CELL VOLUME 86.6 fl (80.0-105.0); MEAN CORPUSCULAR HEMOGLOBIN 27.3 pg (25.0-35.0); MEAN CORPUSCULAR HGB CONC 31.5 g/dl (31.0-37.0); MEAN PLATELET VOLUME 8.4 fl (7.0-11.0); MONO # 0.3 (0.1-0.6); RBC 3.88 10^6/uL (3.5-6.1); RED CELL DISTRIBUTION WIDTH 13.8 % (11.5-14.5); WHITE BLOOD COUNT 6.7 10^3/ul (4.5-11.0)
[2017-08-03 08:54] LABS: ALBUMIN 3.1 g/dL (3.0-4.8); ALT/SGPT 48 U/L (7-56); AST/SGOT 48 U/L (14-36); BLOOD UREA NITROGEN 4 mg/dL (7-21); CALCIUM 8.6 mg/dL (8.4-10.5); GFR AFRICAN-AMERICAN > 60; GFR NON-AFRICAN AMERICAN > 60
[2017-08-03 09:10] VITALS: BP 116/73; PULSE 59; TEMP 98.2; O2SAT 100
[2017-08-03] MEDS ORDERED: levoFLOXacin 500 mg in D5W 500 MG/100 ML BAG IVPB SCH (10:00)
--- NOTE | 2017-08-03 11:24 | CP.PCM.DIS ---
Provider - Provider Date of Admission: 08/01/17 22:37 Attending physician: Mercedes Bowens MD Hospital Course - Lab Results Lab Results: Most Recent Lab Values WBC 6.7 10^3/ul (4.5-11.0) D 08/03/17 05:45 RBC 3.88 10^6/uL (3.5-6.1) 08/03/17 05:45 Hgb 10.6 g/dL (12.0-16.0) L 08/03/17 05:45 Hct 33.6 % (36.0-48.0) L 08/03/17 05:45 MCV 86.6 fl (80.0-105.0) 08/03/17 05:45 MCH 27.3 pg (25.0-35.0) 08/03/17 05:45 MCHC 31.5 g/dl (31.0-37.0) 08/03/17 05:45 RDW 13.8 % (11.5-14.5) 08/03/17 05:45 Plt Count 343 10^3/uL (120.0-450.0) 08/03/17 05:45 MPV 8.4 fl (7.0-11.0) 08/03/17 05:45 Gran % 39.8 % (50.0-68.0) L 08/03/17 05:45 Lymph % (Auto) 51.3 % (22.0-35.0) H 08/03/17 05:45 [place] % (Auto) 5.0 % (1.0-6.0) 08/03/17 05:45 Eos % (Auto) 3.3 % (1.5-5.0) 08/03/17 05:45 Baso % (Auto) 0.6 % (0.0-3.0) 08/03/17 05:45 Gran # 2.68 (1.4-6.5) 08/03/17 05:45 Lymph # (Auto) 3.5 (1.2-3.4) H 08/03/17 05:45 [place] # (Auto) 0.3 (0.1-0.6) 08/03/17 05:45 Eos # (Auto) 0.2 (0.0-0.7) 08/03/17 05:45 Baso # (Auto) 0.04 K/mm3 (0.0-2.0) 08/03/17 05:45 PT 17.4 SECONDS (9.4-12.5) H 08/02/17 07:00 INR 1.50 (0.93-1.08) H 08/02/17 07:00 Sodium 137 mmol/L (132-148) 08/03/17 08:20 Potassium 3.4 mmol/L (3.6-5.0) L 08/03/17 08:20 Chloride 101 mmol/L (98-107) 08/03/17 08:20 Carbon Dioxide 26 mmol/L (21-33) 08/03/17 08:20 Anion Gap 13 (10-20) 08/03/17 08:20 BUN 4 mg/dL (7-21) L 08/03/17 08:20 Creatinine 0.7 mg/dl (0.7-1.2) 08/03/17 08:20 Est GFR ( Amer) > 60 08/03/17 08:20 Est GFR (Non-Af Amer) > 60 08/03/17 08:20 Random Glucose 98 mg/dL (70-110) 08/03/17 08:20 Lactic Acid 0.6 mmol/L (0.7-2.1) L 08/02/17 19:20 Calcium 8.6 mg/dL (8.4-10.5) 08/03/17 08:20 Total Bilirubin 0.1 mg/dL (0.2-1.3) L 08/03/17 08:20 AST 48 U/L (14-36) H 08/03/17 08:20 ALT 48 U/L (7-56) 08/03/17 08:20 Alkaline Phosphatase 42 U/L (38-126) 08/03/17 08:20 Total Protein 6.1 g/dL (5.8-8.3) 08/03/17 08:20 Albumin 3.1 g/dL (3.0-4.8) 08/03/17 08:20 Globulin 3.0 gm/dL 08/03/17 08:20 Albumin/Globulin Ratio 1.0 (1.1-1.8) L 08/03/17 08:20 Lipase 42 U/L (23-300) 08/01/17 14:30 Urine Color Yellow (YELLOW) 08/01/17 14:30 Urine Appearance Clear (CLEAR) 08/01/17 14:30 Urine pH 8.5 (4.7-8.0) 08/01/17 14:30 Ur Specific [place] 1.015 (1.005-1.035) 08/01/17 14:30 Urine Protein Negative mg/dL (<30 mg/dL) 08/01/17 14:30 Urine Glucose (UA) Negative mg/dL (NEGATIVE) 08/01/17 14:30 Urine Ketones Trace mg/dL (NEGATIVE) H 08/01/17 14:30 Urine Blood Negative (NEGATIVE) 08/01/17 14:30 Urine Nitrate Negative (NEGATIVE) 08/01/17 14:30 Urine Bilirubin Negative (NEGATIVE) 08/01/17 14:30 Urine Urobilinogen 0.2 E.U./dL (<1 E.U./dL) 08/01/17 14:30 Ur Leukocyte Esterase Negative [place]w/uL (NEGATIVE) 08/01/17 14:30 Urine Opiates Screen Negative (NEGATIVE) 08/01/17 15:00 Urine Methadone Screen Negative (NEGATIVE) 08/01/17 15:00 Ur Barbiturates Screen Negative (NEGATIVE) 08/01/17 15:00 Ur Phencyclidine Scrn Negative (NEGATIVE) 08/01/17 15:00 Ur Amphetamines Screen Negative (NEGATIVE) 08/01/17 15:00 U Benzodiazepines Scrn Negative (NEGATIVE) 08/01/17 15:00 U Oth Cocaine Metabols Negative (NEGATIVE) 08/01/17 15:00 U Cannabinoids Screen Positive (NEGATIVE) H 08/01/17 15:00 Discharge Exam - Head Exam Head Exam: ATRAUMATIC, NORMAL INSPECTION, NORMOCEPHALIC Discharge Plan - Follow Up Plan Condition: STABLE Disposition: HOME/ ROUTINE Referrals: [facility], [Non-Staff] -
[2017-08-03] MEDS ORDERED: Sucralfate 1 gm/10 ml Oral Susp UD PO SCH (11:30)
[2017-08-03] MEDS ORDERED: POLYETHYLENE GLYCOL 3350 17 GM/Dose PACKET PO SCH (11:30)
--- NOTE | 2017-08-03 11:33 | CP.PCM.CON ---
<Ilsa Rogers - Last Filed: 08/03/17 14:04> History of Present Illness - History of Present Illness History of Present Illness: GI Fellow PGY 4 Progress Note This is a 27 year old female with past medical history of LAGB esophagitis and gastritis who is presenting with complaints of abdominal pain, nausea and vomiting for the past 1 weeks. Patient indicates abdominal pain is diffuse in nature, constant and dull. Patient was recently admitted at [facility] where she was diagnosed with gastroenteritis and discharged with antibiotics on 2017. However she was not able to get her mediations filled and still has nausea , non-bloody, bilious vomiting. Patient reports being able to tolerate a liquid diet intermittently. Patient denies any diarrhea but does report constipation for 2 days. Pt did have an EGD with Dr. Thomas at [facility] 03/2016 which showed LAGB esophagitis, gastritis, duodenopathy and neg HP. On review of record pt's UDS has been positive for Cannabinoids since 2014. Pt reports she smokes alot of cannabis. Patient reports fluctuating episodes similar to presenting symptoms for the past 2 years and hot baths make her feel better. ROS: A 12pt ROS was negative except as above. PMH: Denies PSH: Denies Sochx: Tobacco: 0.5 PPD for past > 5 years ETOH: Denies ID: THC daily, denies IVDA FHx: neg for colon cancer Past Patient History - Past Social History Smoking Status: Light Smoker < 10 Cigarettes Daily Alcohol: None Drugs: Cannabis - CARDIAC Hx Cardiac Disorders: No - PULMONARY Hx Respiratory Disorders: No - NEUROLOGICAL Hx Neurological Disorder: No - HEENT Hx HEENT Problems: No - RENAL Hx Chronic Kidney Disease: No - ENDOCRINE/METABOLIC Hx Endocrine Disorders: No - HEMATOLOGICAL/ONCOLOGICAL Hx Blood Disorders: No - INTEGUMENTARY Hx Dermatological Problems: No - MUSCULOSKELETAL/RHEUMATOLOGICAL Hx Musculoskeletal Disorders: No - GASTROINTESTINAL Hx Gastrointestinal Disorders: Yes Hx Gastritis: Yes - GENITOURINARY/GYNECOLOGICAL Hx Genitourinary Disorders: No - PSYCHIATRIC Hx Psychophysiologic Disorder: No Hx Substance Use: Yes - SURGICAL HISTORY Hx Surgeries: No Meds Home Medications: Home Medication List Medication Instructions Recorded Confirmed Type Ondansetron [Zofran] 4 mg PO Q6H #40 tab 08/03/17 Rx Pantoprazole Sodium [Protonix] 40 mg PO DAILY #14 ect 08/03/17 Rx Polyethylene Glycol 3350 [Miralax] 17 gm PO DAILY #20 packet 08/03/17 Rx Sucralfate [Carafate Oral Susp] 1 gm PO 0630,1130,1630,2200 #20 udc 08/03/17 Rx Allergies/Adverse Reactions: Allergies Allergy/AdvReac Type Severity Reaction Status Date / Time Penicillins Allergy RASH Verified 08/01/17 13:40 - Medications Medications: Current Medications Sodium Chloride (Sodium Chloride 0.9%) 1,000 mls @ 100 mls/hr IV .Q10H [facility] Last Admin: 08/03/17 05:34 Dose: 100 mls/hr Metronidazole (Flagyl) 500 mg in 100 mls @ 100 mls/hr IVPB Q8 [facility] PRN Reason: Protocol Last Admin: 08/03/17 05:33 Dose: 100 mls/hr Levofloxacin/Dextrose (Levaquin 500mg) 500 mg in 100 mls @ 100 mls/hr IVPB DAILY [facility] PRN Reason: Protocol Last Admin: 08/03/17 10:03 Dose: 100 mls/hr Ibuprofen (Motrin Tab) 600 mg PO Q6H PRN PRN Reason: Pain, severe (8-10) Ondansetron HCl (Zofran Inj) 4 mg IVP Q4 PRN PRN Reason: Nausea/Vomiting Last Admin: 08/03/17 05:41 Dose: 4 mg Pantoprazole Sodium (Protonix Inj) 40 mg IVP DAILY [facility] Last Admin: 08/03/17 10:03 Dose: 40 mg Polyethylene Glycol (Miralax) 17 gm PO DAILY [facility] Sucralfate (Carafate Oral Susp) 1 gm PO 0630,1130,1630,2200 [facility] Physical Exam - Constitutional Appears: Non-toxic, No Acute Distress - Head Exam Head Exam: ATRAUMATIC, NORMAL INSPECTION, NORMOCEPHALIC - Eye Exam Eye Exam: EOMI, Normal appearance, PERRL Pupil Exam: PERRL - ENT Exam ENT Exam: Mucous Membranes Moist - Neck Exam Neck exam: Positive for: Normal Inspection - Respiratory Exam Respiratory Exam: Clear to Auscultation Bilateral, NORMAL BREATHING PATTERN - Cardiovascular Exam Cardiovascular Exam: REGULAR RHYTHM, RRR - GI/Abdominal Exam GI & Abdominal Exam: Normal Bowel Sounds, Soft, Tenderness. absent: Distended, Guarding, Organomegaly Additional comments: pain out of proportion to exam, pt with pain on light touch of abdomen - Extremities Exam Extremities exam: Positive for: normal inspection - Back Exam Back exam: NORMAL INSPECTION - Neurological Exam Neurological exam: Alert, Oriented x3 - Psychiatric Exam Psychiatric exam: Normal Affect, Normal Mood - Skin Skin Exam: Dry, Intact, Normal Color, Warm Results - Vital Signs Recent Vital Signs: Last Vital Signs Temp 98.2 F 08/03/17 09:09 Pulse 59 L 08/03/17 09:09 Resp 20 08/03/17 09:09 BP 116/73 08/03/17 09:09 Pulse Ox 100 08/03/17 09:09 - Labs Result Diagrams: 08/03/17 05:45 08/03/17 08:20 Labs: Laboratory Results - last 24 hr 08/02/17 08/03/17 08/03/17 19:20 05:45 08:20 WBC 6.7 D RBC 3.88 Hgb 10.6 L Hct 33.6 L MCV 86.6 MCH 27.3 MCHC 31.5 RDW 13.8 Plt Count 343 MPV 8.4 Gran % 39.8 L Lymph % (Auto) 51.3 H [place] % (Auto) 5.0 Eos % (Auto) 3.3 Baso % (Auto) 0.6 Gran # 2.68 Lymph # (Auto) 3.5 H [place] # (Auto) 0.3 Eos # (Auto) 0.2 Baso # (Auto) 0.04 Sodium 137 Potassium 3.4 L Chloride 101 Carbon Dioxide 26 Anion Gap 13 BUN 4 L Creatinine 0.7 Est GFR ( Amer) > 60 Est GFR (Non-Af Amer) > 60 Random Glucose 98 Lactic Acid 0.6 L Calcium 8.6 Total Bilirubin 0.1 L AST 48 H ALT 48 Alkaline Phosphatase 42 Total Protein 6.1 Albumin 3.1 Globulin 3.0 Albumin/Globulin Ratio 1.0 L Assessment & Plan - Assessment and Plan (Free Text) Assessment: This is a 27yF presenting with abdominal pain and intractable nausea and vomiting. 1. 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 Gastritis 3. LAGB esophagitis 4. Constipation Plan: -Continue supportive care with anti-emetics -PPI and carafate -Liquid diet and advance as tolerated -Advised cessation of marijuana as this can be contributing to her symptoms -CT imaging reviewed with no signs of infection, no fevers and no WBC -No plan for EGD at this time -Bowel regimen with miralax daily -Please call with any questions <Charles Goodman - Last Filed: 08/03/17 14:47> Meds - Medications Medications: Current Medications Acetaminophen (Tylenol 325mg Tab) 650 mg PO Q6H PRN PRN Reason: Pain, moderate (4-7) Sodium Chloride (Sodium Chloride 0.9%) 1,000 mls @ 100 mls/hr IV .Q10H [facility] Last Admin: 08/03/17 05:34 Dose: 100 mls/hr Metronidazole (Flagyl) 500 mg in 100 mls @ 100 mls/hr IVPB Q8 [facility] PRN Reason: Protocol Last Admin: 08/03/17 05:33 Dose: 100 mls/hr Levofloxacin/Dextrose (Levaquin 500mg) 500 mg in 100 mls @ 100 mls/hr IVPB DAILY [facility] PRN Reason: Protocol Last Admin: 08/03/17 10:03 Dose: 100 mls/hr Ondansetron HCl (Zofran Inj) 4 mg IVP Q4 PRN PRN Reason: Nausea/Vomiting Last Admin: 08/03/17 05:41 Dose: 4 mg Pantoprazole Sodium (Protonix Inj) 40 mg IVP DAILY [facility] Last Admin: 08/03/17 10:03 Dose: 40 mg Polyethylene Glycol (Miralax) 17 gm PO DAILY [facility] Last Admin: 08/03/17 11:45 Dose: 17 gm Sucralfate (Carafate Oral Susp) 1 gm PO 0630,1130,1630,2200 [facility] Last Admin: 08/03/17 11:29 Dose: 1 gm Results - Vital Signs Recent Vital Signs: Last Vital Signs Temp 98.2 F 08/03/17 09:09 Pulse 59 L 08/03/17 09:09 Resp 20 08/03/17 09:09 BP 116/73 08/03/17 09:09 Pulse Ox 100 08/03/17 09:09 - Labs Result Diagrams: 08/03/17 05:45 08/03/17 08:20 Labs: Laboratory Results - last 24 hr 08/02/17 08/03/17 08/03/17 19:20 05:45 08:20 WBC 6.7 D RBC 3.88 Hgb 10.6 L Hct 33.6 L MCV 86.6 MCH 27.3 MCHC 31.5 RDW 13.8 Plt Count 343 MPV 8.4 Gran % 39.8 L Lymph % (Auto) 51.3 H [place] % (Auto) 5.0 Eos % (Auto) 3.3 Baso % (Auto) 0.6 Gran # 2.68 Lymph # (Auto) 3.5 H [place] # (Auto) 0.3 Eos # (Auto) 0.2 Baso # (Auto) 0.04 Sodium 137 Potassium 3.4 L Chloride 101 Carbon Dioxide 26 Anion Gap 13 BUN 4 L Creatinine 0.7 Est GFR ( Amer) > 60 Est GFR (Non-Af Amer) > 60 Random Glucose 98 Lactic Acid 0.6 L Calcium 8.6 Total Bilirubin 0.1 L AST 48 H ALT 48 Alkaline Phosphatase 42 Total Protein 6.1 Albumin 3.1 Globulin 3.0 Albumin/Globulin Ratio 1.0 L Attending/Attestation - Attestation I have personally seen and examined this patient.: Yes I have fully participated in the care of the patient.: Yes I have reviewed all pertinent clinical information: Yes Notes (Text): 08/03/17 14:47 27 year old female with h/o marijuana use admitted with abdominal pain, also with h/o esophagitis. Recommend supportive measures including PPI and anti- emetics as needed. Advance diet as tolerated.
--- NOTE | 2017-08-03 14:02 | CP.PCM.PN ---
Subjective - Date & Time of Evaluation Date of Evaluation: 08/03/17 Time of Evaluation: 13:55 - Subjective Subjective: PGY-[address] Bowens Pt complained of nausea. Given zofran, carafat. Refuse tylenol. I was in patient 's room explain plan to continue to observe her for the next hour and her discharge & follow-up plan. Pt refused to listen and asked me to place the prescriptions on the tray table. Then, RN took out IV. Pt proceeds to walk out of the patient room. I handed her the prescription, and pt refused to sign the discharge paper. Pt walked directly to the elevator. Pt walks in upright posture in normal steady gait with one hand holding the cell phone. Objective - Vital Signs/Intake and Output Vital Signs (last 24 hours): Temp Pulse Resp BP Pulse Ox 98.2 F 59 L 20 116/73 100 08/03/17 09:09 08/03/17 09:09 08/03/17 09:09 08/03/17 09:09 08/03/17 09:09 Intake and Output: 08/03/17 08/03/17 06:59 18:59 Intake Total 480 Balance 480 - Medications Medications: Current Medications Acetaminophen (Tylenol 325mg Tab) 650 mg PO Q6H PRN PRN Reason: Pain, moderate (4-7) Sodium Chloride (Sodium Chloride 0.9%) 1,000 mls @ 100 mls/hr IV .Q10H [facility] Last Admin: 08/03/17 05:34 Dose: 100 mls/hr Metronidazole (Flagyl) 500 mg in 100 mls @ 100 mls/hr IVPB Q8 [facility] PRN Reason: Protocol Last Admin: 08/03/17 05:33 Dose: 100 mls/hr Levofloxacin/Dextrose (Levaquin 500mg) 500 mg in 100 mls @ 100 mls/hr IVPB DAILY [facility] PRN Reason: Protocol Last Admin: 08/03/17 10:03 Dose: 100 mls/hr Ondansetron HCl (Zofran Inj) 4 mg IVP Q4 PRN PRN Reason: Nausea/Vomiting Last Admin: 08/03/17 05:41 Dose: 4 mg Pantoprazole Sodium (Protonix Inj) 40 mg IVP DAILY [facility] Last Admin: 08/03/17 10:03 Dose: 40 mg Polyethylene Glycol (Miralax) 17 gm PO DAILY [facility] Last Admin: 08/03/17 11:45 Dose: 17 gm Sucralfate (Carafate Oral Susp) 1 gm PO 0630,1130,1630,2200 [facility] Last Admin: 08/03/17 11:29 Dose: 1 gm - Labs Labs: 08/03/17 05:45 08/03/17 08:20 PT 17.4 SECONDS (9.4-12.5) H 08/02/17 07:00 INR 1.50 (0.93-1.08) H 08/02/17 07:00
== END 2017-08-03 15:41 | disposition home or self-care (01) ==
LOC: ED 13:37 → ERH 22:37 → 3RNO 23:59
PROVIDERS: ADMIT Hospitalist; ATTEND Internal Medicine
DX: K52.9 Noninfective gastroenteritis and colitis, unspecified (principal); K29.70 Gastritis, unspecified, without bleeding; K20.9 Esophagitis, unspecified; G43.A0 Cyclical vomiting, in migraine, not intractable; F12.90 Cannabis use, unspecified, uncomplicated; K59.00 Constipation, unspecified; F17.210 Nicotine dependence, cigarettes, uncomplicated; Z88.0 Allergy status to penicillin
CPT/HCPCS: 36415; 74176; 80053; 80324; 80345; 80346; 80349; 80353; 80358; 80361; 81003; 83605; 83690; 83992; 85025; 85610; 87086; 96361; 96365; 96366; 96367; 96375; 96376; 99285; C9113; G0378; J0744; J1170; J2270; J2405; J3480; J7040

== ENCOUNTER 2017-10-28 16:14 | Emergency (ER) | payer OTHER ==
[2017-10-28 16:15] VITALS: BMI 24.2
[2017-10-28 16:53] VITALS: RESP 18
[2017-10-28] MEDS ORDERED: Sodium Chloride 0.9% 1,000 ML IV STA (17:43)
--- NOTE | 2017-10-28 18:24 | ED PDOC ---
Arrival/HPI - General Chief Complaint: GI Problem Time Seen by Provider: 10/28/17 17:19 Historian: Patient - History of Present Illness Narrative History of Present Illness (Text): 10/28/17 18:17 Patient is a 27 yo female with past medical history of gastritis and esophagitis , presents to the Emergency Department stating that she has had persistent upper abdominal pain with nausea over past three days. Patient states that pain is typical of past episodes, states that it started after "drinking and eating something" 3 days ago. Pain worse with eating. No fevers. No hematemesis. No diarrhea or dark or bloody stools. She states she is currently not taking any medication for her abdominal pain. Denies fevers. Denies chest pain or shortness of breath. Denies vaginal bleeding. Time/Duration: Prior to Arrival Symptom Onset: Gradual Past Medical History - Infectious Disease Hx of Infectious Diseases: None - Tetanus Immunization Tetanus Immunization: Unknown - Cardiac Hx Cardiac Disorders: No - Pulmonary Hx Asthma: No (pt denies) - Neurological Hx Neurological Disorder: No - HEENT Hx HEENT Disorder: No - Renal Hx Renal Disorder: No Hx Kidney Stones: No - Endocrine/Metabolic Hx Endocrine Disorders: No - Hematological/Oncological Hx Blood Disorders: No - Integumentary Hx Dermatological Disorder: No - Musculoskeletal/Rheumatological Hx Musculoskeletal Disorders: Yes - Gastrointestinal Hx Gastritis: Yes Hx Pancreatitis: Yes - Genitourinary/Gynecological Hx Genitourinary Disorders: No - Psychiatric Hx Psychophysiologic Disorder: No Hx Substance Use: Yes (Marijuana) - Anesthesia Hx Anesthesia: No Hx Anesthesia Reactions: No Hx Malignant Hyperthermia: No - Suicidal Assessment Feels Threatened In Home Enviroment: No Family/Social History Smoking Status: Never Smoked Hx Alcohol Use: No (occasional) Hx Substance Use: Yes (Marijuana) Substance used: marijunnia Allergies/Home Meds Allergies/Adverse Reactions: Allergies Penicillins Allergy (Verified 10/28/17 16:53) ANGIOEDEMA Review of Systems - Review of Systems Constitutional: Fatigue. absent: Fevers Eyes: absent: Vision Changes ENT: absent: Hearing Changes Respiratory: absent: SOB Cardiovascular: absent: Chest Pain, Palpitations, Edema, Calf Pain, WEBBER Gastrointestinal: Abdominal Pain, Nausea, Vomiting, Appetite Changes. absent: Constipation, Diarrhea, Hematochezia, Hematemesis Genitourinary Female: absent: Dysuria, Frequency, Hematuria, Vaginal Bleeding Musculoskeletal: absent: Back Pain, Neck Pain Skin: absent: Rash Neurological: absent: Headache, Dizziness, Focal Weakness Endocrine: absent: Polyuria Hemo/Lymphatic: absent: Easy Bleeding Psychiatric: absent: Depression Physical Exam Vital Signs Reviewed: Yes Vital Signs Temp Pulse Resp BP Pulse Ox 10/28/17 16:15 98.6 F 58 L 18 145/89 100 Temperature: Afebrile Appearance: Positive for: Uncomfortable Pain Distress: Mild Mental Status: Positive for: Alert and Oriented X 3 - Systems Exam Head: Present: Atraumatic Mouth: Present: Dry Pharnyx: No: ERYTHEMA Neck: Present: Normal Range of Motion. No: Meningeal Signs Respiratory/Chest: Present: Clear to Auscultation. No: Respiratory Distress Cardiovascular: Present: Regular Rate and Rhythm Abdomen: Present: Tenderness, Other (there is pain in epigastric region, no lower abdominal pain, no rebound or gurading). No: Peritoneal Signs Rectal: No: Gross Blood Genitourinary/Pelvic Exam: Present: Other (patient refused) Back: No: CVA Tenderness Upper Extremity: No: Cyanosis Lower Extremity: No: Edema Neurological: Present: Motor Func Grossly Intact, Normal Sensory Function Skin: Present: Warm Psychiatric: Present: Alert, Normal Insight, Normal Concentration Medical Decision Making ED Course and Treatment: 10/28/17 18:28 Patient reports abdominal pain for 3 days, constant, worse with meals. I reviewed recent past available records and recent ct abdomen/pelvis available. Patient reportedly with past history of gastritis and esophagitis. No hematemesis noted. Pain described as similar in character and location. I examined patient and explained treatment plan including labs and iv fluids, zofran pepcid. I attempted to obtain further history from patient, she states she has had past endoscopy within the past year. When I asked patient if she is taking any current medication she states "I don't know why you are asking" and "I was at [facility] a few weeks ago they never sent my prescriptions". I asked if she has been taking any medication over the past several months she states "no I don't know why you need to ask that it's not relevant". I explained to patient that I was attempting to obtain history regarding her past treatment and compliance with medication. She is agreeable to iv, labs and I have explained treatment plan and differential diagnosis, including but not limited to gastritis, esophagitis, colitis, gastroenteritis. CT scan from 08/01/17 reviewed showed the following: Abd/Pelvis CT IMPRESSION: 1. There is a mild to moderate-sized hiatal hernia, with wall thickening of this hernia and the distal esophagus. This wall thickening is likely inflammatory, although additional pathology cannot be excluded. 2. There is an increase in density within the appendix, consistent with residual prior oral contast ministration or appendicoliths. There is minimal appendicitis cannot be excluded. Clinical correlation is recommended. 3. A gastric diverticulum is visualized posteriorly. 4. A small amount free fluid is seen within the cul-de-sac. This can be further evaluated with ultrasound. Dictator: James Angulo MD Patient reassessed at 1820. She is resting, lying on stretcher. No tachycardia. No vomiting. She states that she feels better, but will not answer further questions. I have informed her she will have abdominal ultrasound based on history of upper abdominal pain. Labs reviewed with patient in laymens' terms. 10/28/17 22:17 Patient feels better. 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 On re-exam , she is tolerating po with no pain or nausea, resting comfortably. I have reviewed in laymen's terms ultrasound findings and past cracking unit operator recommendations. She will be discharged with medications, advised followup with PMD and gastroenetrologist. - Lab Interpretations Lab Results: 10/28/17 18:37 10/28/17 18:37 Lab Results 10/28/17 18:37: Acetaminophen < 10.0 L 10/28/17 18:37: Alcohol, Quantitative < 10 10/28/17 18:37: Sodium 142, Potassium 3.3 L, Chloride 100, Carbon Dioxide 24, Anion Gap 20, BUN 12, Creatinine 0.7, Est GFR ( Amer) > 60, Est GFR (Non- Af Amer) > 60, Random Glucose 107, Calcium 9.4, Total Bilirubin 0.5, AST 33, ALT 33, Alkaline Phosphatase 93, Total Protein 8.6 H, Albumin 4.7, Globulin 3.9 , Albumin/Globulin Ratio 1.2, Amylase 114, Lipase 151 10/28/17 18:37: Urine Color Yellow, Urine Appearance Clear, Urine pH 6.0, Ur Specific [place] >= 1.030, Urine Protein 30 H, Urine Glucose (UA) Negative, Urine Ketones >=80, Urine Blood Small H, Urine Nitrate Negative, Urine Bilirubin Small H, Urine Urobilinogen 0.2, Ur Leukocyte Esterase Negative, Urine RBC 1 - 3, Urine WBC 5 - 10, Ur Epithelial Cells 6 - 8, Urine Bacteria Few , Urine HCG, Qual Negative 10/28/17 18:37: PT 14.8 H, INR 1.29 H, APTT 27.6 10/28/17 18:37: WBC 9.7 D, RBC 4.73, Hgb 13.0 D, Hct 38.9, MCV 82.2 D, MCH 27.5, MCHC 33.4, RDW 13.4, Plt Count 281, MPV 8.8, Gran % 74.2 H, Lymph % (Auto ) 18.5 L, [place] % (Auto) 7.1 H, Eos % (Auto) 0.0 L, Baso % (Auto) 0.2, Gran # 7.19 H, Lymph # (Auto) 1.8, [place] # (Auto) 0.7 H, Eos # (Auto) 0.0, Baso # (Auto ) 0.02 - RAD Interpretation Radiology Orders: 10/28/17 19:15 ABDOMEN COMPLETE [US] Stat - Medication Orders Current Medication Orders: Discontinued Medications Sodium Chloride (Sodium Chloride 0.9%) 1,000 mls @ 1,000 mls/hr IV .Q1H [facility] Stop: 10/28/17 18:42 Last Admin: 10/28/17 18:27 Dose: 1,000 mls/hr eMAR Start Stop Document 10/28/17 18:27 HI (Rec: 10/28/17 18:28 HI [id number]) Intravenous Solution Start Date 10/28/17 Start Time 18:28 Ondansetron HCl (Zofran Inj) 4 mg IVP ONCE ONE Stop: 10/28/17 17:44 Last Admin: 10/28/17 18:28 Dose: 4 mg IVP Administration Document 10/28/17 18:28 HI (Rec: 10/28/17 18:28 HI [id number]) Charges for Administration # of IVP Administrations 1 Pantoprazole Sodium (Protonix Inj) 40 mg IVP ONCE STA Stop: 10/28/17 17:44 Last Admin: 10/28/17 18:27 Dose: 40 mg IVP Administration Document 10/28/17 18:27 HI (Rec: 10/28/17 18:27 HI [id number]) Charges for Administration # of IVP Administrations 1 Potassium Chloride (K-Dur 20 Meq Er Tab) 20 meq PO STAT STA Stop: 10/28/17 19:17 Disposition/Present on Arrival - Present on Arrival Any Indicators Present on Arrival: No History of DVT/PE: No History of Uncontrolled Diabetes: No Urinary Catheter: No History of Decub. Ulcer: No History Surgical Site Infection Following: None - Disposition Have Diagnosis and Disposition been Completed?: Yes Diagnosis: Gastritis Disposition: HOME/ ROUTINE Disposition Time: 22:19 Patient Plan: Discharge Patient Problems: Current Active Problems Problem Status Onset Gastritis Acute Condition: GOOD Discharge Instructions (ExitCare): Gastritis (DC) Additional Instructions: Follow-up with your cracking unit operator. Avoid alcohol and spicy greasy foods. For any return of pain, any chest pain or shortness of breath, any nausea, any coughing/spitting or vomiting blood, any bloody urine or stool, any numbness or weakness, any persistence or worsening of any symptoms, get rechecked. Risks of noncompliance with diet and medications and follow-up have been reviewed with your. Prescriptions: Esomeprazole Magnesium [Nexium] 20 mg PO DAILY #14 ecc Referrals: Charles Goodman MD [Staff Provider] - Follow up with primary Forms: [employer] ([place]), WORK NOTE
[2017-10-28 18:48] LABS: BASO # 0.02 K/mm3 (0.0-2.0); BASO % 0.2 % (0.0-3.0); GRAN # 7.19 (1.4-6.5); GRAN % 74.2 % (50.0-68.0); LYMPH # 1.8 (1.2-3.4); LYMPH % 18.5 % (22.0-35.0); MEAN CELL VOLUME 82.2 fl (80.0-105.0); MEAN CORPUSCULAR HEMOGLOBIN 27.5 pg (25.0-35.0); MEAN CORPUSCULAR HGB CONC 33.4 g/dl (31.0-37.0); MEAN PLATELET VOLUME 8.8 fl (7.0-11.0); MONO # 0.7 (0.1-0.6); MONO % 7.1 % (1.0-6.0); RBC 4.73 10^6/uL (3.5-6.1); RED CELL DISTRIBUTION WIDTH 13.4 % (11.5-14.5); URINE BILIRUBIN SMALL (NEGATIVE); URINE BLOOD SMALL (NEGATIVE); URINE GLUCOSE (UA) NEGATIVE (NEGATIVE); URINE LEUKOCYTE ESTERASE NEGATIVE Leu/uL (NEGATIVE); URINE PROTEIN 30 mg/dL (<30 mg/dL); URINE UROBILINOGEN 0.2 E.U./dL (<1 E.U./dL); WHITE BLOOD COUNT 9.7 10^3/ul (4.5-11.0)
[2017-10-28 18:54] LABS: URINE APPEARANCE CLEAR (CLEAR); URINE COLOR YELLOW (YELLOW)
[2017-10-28 18:56] LABS: HCG,QUALITATIVE URINE NEGATIVE (NEGATIVE)
[2017-10-28 18:59] LABS: BLOOD UREA NITROGEN 12 mg/dL (7-21); GFR AFRICAN-AMERICAN > 60; GFR NON-AFRICAN AMERICAN > 60; URINE BACTERIA FEW (NEG)
[2017-10-28 19:00] LABS: ALB/GLOB RATIO 1.2 (1.1-1.8); ALBUMIN 4.7 g/dL (3.0-4.8); ALT/SGPT 33 U/L (7-56); AMYLASE 114 U/L (35-125); AST/SGOT 33 U/L (14-36); CALCIUM 9.4 mg/dL (8.4-10.5); INR 1.29 (0.93-1.08); LIPASE 151 U/L (23-300); PARTIAL THROMBOPLASTIN TIME 27.6 Seconds (25.1-36.5); PROTHROMBIN TIME 14.8 SECONDS (9.4-12.5)
[2017-10-28] MEDS ORDERED: Potassium Chloride 20 mEq ER Tab PO STA (19:16)
--- NOTE | 2017-10-28 21:15 | US ---
EXAM: US Abdomen Complete EXAM DATE/TIME: 10/28/2017 7:15 PM CLINICAL HISTORY: The patient age is 27 years old and is female; Pain; Abdominal pain; Generalized; Additional info: Upper abdominal pain Facility exam id and description: Us abd abdomen complete TECHNIQUE: Real-time ultrasound of the abdomen (complete) with image documentation. COMPARISON: CT - ABD PELVIS W/O PO OR IV CONT 2017-08-01 19:08 FINDINGS: Liver: The liver measures 14.1 cm in length and is normal in echogenicity. Gallbladder: No discrete gallstones are identified. There is no visualized gallbladder wall thickening. The sonographic Dominguez's sign is negative. There is no pericholecystic fluid. Common bile duct: The common bile duct measures 0.3 cm in diameter, which is within normal limits. Pancreas: The tail of the pancreas is partially visualized due to bowel gas. No focal abnormality is seen within the remaining pancreas. Kidneys: The right kidney measures 10.2 x 4.5 x 5.1 cm. The left kidney measures 9.6 x 5.2 x 5.1 cm. No shadowing stones. No hydronephrosis. Spleen: These spleen measures 8.0 x 4.1 cm and is normal in echotexture. Aorta: The abdominal aorta is normal in caliber, as visualized. Inferior vena cava: Visualized, with limited evaluation. IMPRESSION: 1. No sonographic evidence of acute cholecystitis. 2. Additional findings described above.
[2017-10-28 23:28] VITALS: BP 139/80; PULSE 62; TEMP 98.5; O2SAT 99
== END 2017-10-28 22:30 | disposition home or self-care (01) ==
LOC: ED 16:14
DX: K29.70 Gastritis, unspecified, without bleeding (principal)
CPT/HCPCS: 76700; 80053; 80320; 80329; 81001; 82150; 83690; 84703; 85025; 85610; 85730; 87086; 96374; 96375; 99284; C9113; J2405; J7030

== ENCOUNTER 2017-10-30 10:03 | Emergency (ER) | payer OTHER ==
[2017-10-30 10:03] VITALS: BMI 24.2
[2017-10-30 10:25] VITALS: TEMP 98.5
[2017-10-30] MEDS ORDERED: Atrop/Hyosc/Scopal/PB Elixir (120 ml) PO STA (10:35)
[2017-10-30] MEDS ORDERED: Morphine 4 mg/ml ISec IVP STA (10:35)
[2017-10-30] MEDS ORDERED: Alum-Mag Hydrox-Simethicone Susp (30 mL) PO STA (10:35)
[2017-10-30] MEDS ORDERED: Sodium Chloride 0.9% 1,000 ML IV STA (10:35)
--- NOTE | 2017-10-30 10:43 | ED PDOC ---
Arrival/HPI - General Chief Complaint: Abdominal Pain Time Seen by Provider: 10/30/17 10:34 Historian: Patient, EMS - History of Present Illness Narrative History of Present Illness (Text): 10/30/17 10:38 pt p/w + < 1 week onset of severe epigastric/abd pain; pt was seen in the emergency department 2 days ago for the same complaint, pt was not sure what her diagnosis were 2 days ago but she was subsequently discharged home however states the medications prescribed for her didnt help her at all; pt became more in pain today and proceeded to have persistent nausea/vomiting, noticing at least 10 episodes of vomiting today; non-bloody; pt states she felt weak and fatigued, + lightheadedness/dizziness; no fever/chills/sweats, no chest pain/ shortness of breath/palpitations, no numbness/tingling, no urinary/bowel changes , no fall/trauma/sick contact, 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 PCP: [facility], but has not seen them for awhile Time/Duration: < week (~ 4-5 days) Symptom Onset: Sudden Symptom Course: Unchanged Quality: Stabbing, Cramping Severity Level: 10 (pt states 12/10 pain), Severe Activities at Onset: Rest Context: Home Past Medical History - Provider Review Nursing Documentation Reviewed: Yes - Travel History Have you recently traveled outside [place] w/in the past 3 mons?: No - Past History Past History: No Previous - Infectious Disease Hx of Infectious Diseases: None - Tetanus Immunization Tetanus Immunization: Unknown - Reproductive Menopause: No Currently : Unknown - Cardiac Hx Cardiac Disorders: No - Pulmonary Hx Asthma: No (pt denies) - Neurological Hx Neurological Disorder: No - HEENT Hx HEENT Disorder: No - Renal Hx Renal Disorder: No Hx Kidney Stones: No - Endocrine/Metabolic Hx Endocrine Disorders: No - Hematological/Oncological Hx Blood Disorders: No - Integumentary Hx Dermatological Disorder: No - Musculoskeletal/Rheumatological Hx Musculoskeletal Disorders: Yes - Gastrointestinal Hx Gastritis: Yes Hx Pancreatitis: Yes - Genitourinary/Gynecological Hx Genitourinary Disorders: No - Psychiatric Hx Psychophysiologic Disorder: No Hx Substance Use: Yes (Marijuana) - Anesthesia Hx Anesthesia: No Hx Anesthesia Reactions: No Hx Malignant Hyperthermia: No - Suicidal Assessment Feels Threatened In Home Enviroment: No Family/Social History - Physician Review Nursing Documentation Reviewed: Yes Family/Social History: No Known Family HX Smoking Status: Never Smoked Hx Alcohol Use: No (occasional) Hx Substance Use: Yes (Marijuana) Substance used: marijunnia Hx Substance Use Treatment: No Allergies/Home Meds Allergies/Adverse Reactions: Allergies Penicillins Allergy (Verified 10/30/17 10:25) ANGIOEDEMA Review of Systems - Review of Systems Constitutional: Normal Eyes: Normal ENT: Normal Respiratory: Normal. absent: SOB Cardiovascular: Normal. absent: Chest Pain Gastrointestinal: Abdominal Pain, Nausea, Vomiting, Appetite Changes Genitourinary Female: Normal Musculoskeletal: Normal Skin: Normal Neurological: Dizziness. absent: Headache Endocrine: Normal Hemo/Lymphatic: Normal Psychiatric: Normal Physical Exam - Physical Exam Narrative Physical Exam (Text): 10/30/17 14:11 General: alert/awake, GCS = 15, oriented x 3, resting in bed, uncomfortable, cooperative, interactive; moderate distress due to pain Head: NC/AT EYE: PERRLA, EOMI, sclera anicteric, no nystagmus, no photophobia; visual field intact b/l Facial: WNL Oral: uvula/tongue are midline, no exudate/lesions, no drooling/stridor, no dysphonia; mild dry oral mucosa, fair dentitions NECK: intact ROM, no midline tenderness, no nuchal rigidity, no meningeal signs ; no step off Chest: CTA b/l, no w/r/r; no tachypenia, no accessory muscle use noted Cardiac: +S1, +S2, no m/r/r, no tachycardia Abdominal: +BS, soft/nd; diffuse mid/lower abd tenderness, well nourished patient; no masses/rebound/guarding/rigidity; + blank's sign, no mcburney's point tenderness; no psoas/obturator sign Extremities: intact ROM, strength 5/5 grossly intact in all limbs, neurovasc intact b/l; + ambulatory; reflex +2/2 BACK: no step off, no midline tenderness, NO crepitus, no gross deformities noted; Intact ROM SKIN: cap refill ~ 1 sec, no ulcerations, no petechiae, no rashes; no gross pallor NEURO: CNII-XII WNL, no facial asymmetries, no slurr speech, oriented x 3 NIH stroke scale ~ 0 Psych: normal insight, normal affect; follows command with ease Vital Signs Reviewed: Yes Vital Signs Temp Pulse Resp BP Pulse Ox 10/30/17 14:07 17 10/30/17 12:12 56 L 16 109/67 99 10/30/17 10:21 98.5 F 58 L 18 114/81 98 Temperature: Afebrile Blood Pressure: Normal Pulse: Regular Respiratory Rate: Normal Appearance: Positive for: Well-Appearing, Non-Toxic, Uncomfortable, Other ( writhing in pain in her exam bed, crying) Pain Distress: Moderate Mental Status: Positive for: Alert and Oriented X 3 - Systems Exam Head: Present: Atraumatic, Normocephalic Medical Decision Making ED Course and Treatment: 10/30/17 10:43 Impression: diffuse abd pain i have consider all the differential diagnosis regarding pt's chief medical complaints/clinical findings, including but are not limited to: diffuse abd pain A/P: diffuse abd pain - labs - iv - ct - ua - supportive care - observe/reevaluation 10/30/17 11:30: Patient felt improved. Patient awaiting CT results. pt is currently feeling much improved 1300: discussed at length with patient regarding her medical results; given that currently no focal findings (non-surgical pain, no acute medical pathology ) are noted, with negative CT as well, pt likely with gastric origin discomfort ; pt is encouraged and educated on NO drugs/no smoking, NO alcohol and proper low fat diet (bland diet) in the meantime; pt however states she needs something to make sure she is not going to be at work and having the same symptoms again and then to miss work again; i explained to the patient that i can not guarantee that her pain wont come back and that a single medication/ prescription will get rid of her problem; pt did not want to hear it however; Charge nurse is made aware of my interaction with the patient as the patient became louder and i did not feel like she is getting what i am trying to explain /educate her with vital signs are much improved pt is made aware of her medical results pt is encouraged BLAND DIET pt is encouraged NO alcohol/smoking/no drugs pt is encouraged extra bananas - to boost her K pt is encouraged fluids pt will follow up as directed pt will be discharged home Re-evaluation Time: 12:30 Reassessment Condition: Improved - Lab Interpretations Lab Results: 10/30/17 11:03 10/30/17 11:03 Lab Results 10/30/17 11:03: Sodium 141, Chloride 100, Potassium 3.1 L, Carbon Dioxide 27, Anion Gap 17, BUN 10, Creatinine 0.8, Est GFR ( Amer) > 60, Est GFR (Non- Af Amer) > 60, Random Glucose 124 H, Calcium 9.2, Magnesium 1.9, Total Bilirubin 0.4, AST 22, ALT 28, Alkaline Phosphatase 78, Total Protein 7.9, Albumin 4.4, Globulin 3.6, Albumin/Globulin Ratio 1.2, Lipase 55 10/30/17 11:03: pO2 154 H, VBG pH 7.47 H, VBG pCO2 42.0, VBG HCO3 30.6 H, VBG Total CO2 31.9 H, VBG O2 Sat (Calc) 99.9 H, VBG Base Excess 6.2 H, VBG Potassium 3.1 L, Sodium 138.0, Chloride 104.0, Glucose 131 H, Lactate 0.9, FiO2 21.0, Venous Blood Potassium 3.1 L 10/30/17 11:03: WBC 7.1 D, RBC 4.46, Hgb 12.5, Hct 36.7, MCV 82.3, MCH 28.0, MCHC 34.1, RDW 13.2, Plt Count 296, MPV 8.4, Gran % 65.1, Lymph % (Auto) 27.7, [place] % (Auto) 6.5 H, Eos % (Auto) 0.1 L, Baso % (Auto) 0.6, Gran # 4.64, Lymph # (Auto) 2.0, [place] # (Auto) 0.5, Eos # (Auto) 0.0, Baso # (Auto) 0.04 10/30/17 11:00: Urine Color Yellow, Urine Appearance Clear, Urine pH 6.0, Ur Specific [place] 1.025, Urine Protein 100 H, Urine Glucose (UA) Negative, Urine Ketones 40 H, Urine Blood Moderate H, Urine Nitrate Negative, Urine Bilirubin Small H, Urine Urobilinogen 1.0 H, Ur Leukocyte Esterase Negative, Urine RBC 15 - 20, Urine WBC 1 - 3, Ur Epithelial Cells 6 - 8, Amorphous Sediment Few, Urine Bacteria Many, Urine Other Uyeast I have reviewed the lab results: Yes Interpretation: Abnormal lab values (decr K) - RAD Interpretation Narrative RAD Interpretations (Text): 10/30/17 14:05 PROCEDURE: CT Abdomen and Pelvis with contrast HISTORY: severe diffuse abd pain, hx of pancreatitis/gastri COMPARISON: None. TECHNIQUE: Contrast dose: 100 cc of Omni 350 Radiation dose: Total exam DLP = 549 mGy-cm. This CT exam was performed using one or more of the following dose reduction techniques: Automated exposure control, adjustment of the mA and/or kV according to patient size, and/or use of iterative reconstruction technique. FINDINGS: LOWER THORAX: Unremarkable. LIVER: Unremarkable. No gross lesion or ductal dilatation. GALLBLADDER AND BILE DUCTS: Unremarkable. PANCREAS: Unremarkable. No gross lesion or ductal dilatation. SPLEEN: Unremarkable. ADRENALS: Unremarkable. No mass. KIDNEYS AND URETERS: Unremarkable. No hydronephrosis. No solid mass. VASCULATURE: Unremarkable. No aortic aneurysm. BOWEL: Unremarkable. No obstruction. No gross mural thickening. APPENDIX: Normal appendix. PERITONEUM: Unremarkable. No free fluid. No free air. LYMPH NODES: Unremarkable. No enlarged lymph nodes. BLADDER: Unremarkable. REPRODUCTIVE: Bilateral ovarian cysts. BONES: No acute fracture. OTHER FINDINGS: None. 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 - Medication Orders Current Medication Orders: Discontinued Medications Al Hydrox/Mg Hydrox/Simethicone (Maalox Plus 30 Ml) 30 ml PO STAT STA Stop: 10/30/17 10:36 Last Admin: 10/30/17 12:09 Dose: 30 ml Belladonna/Phenobarbital ( Elixir) 10 ml PO STAT STA Stop: 10/30/17 10:36 Last Admin: 10/30/17 12:08 Dose: 10 ml Famotidine (Pepcid) 20 mg IVP STAT STA Stop: 10/30/17 10:36 Last Admin: 10/30/17 12:10 Dose: 20 mg IVP Administration Document 10/30/17 12:10 EVER (Rec: 10/30/17 12:10 EVER [id number]) Charges for Administration # of IVP Administrations 1 Sodium Chloride (Sodium Chloride 0.9%) 1,000 mls @ 1,000 mls/hr IV .Q1H STA Stop: 10/30/17 11:34 Last Admin: 10/30/17 10:47 Dose: 1,000 mls/hr eMAR Start Stop Document 10/30/17 10:47 EVER (Rec: 10/30/17 10:47 EVER [id number]) Intravenous Solution Start Date 10/30/17 Start Time 10:47 End Date 10/30/17 End time 11:47 Total Infusion Time 60 Lidocaine HCl (Lidocaine 2% Viscous) 10 ml MM STAT STA Stop: 10/30/17 10:36 Last Admin: 10/30/17 12:09 Dose: 10 ml Morphine Sulfate (Morphine) 4 mg IVP STAT STA Stop: 10/30/17 10:36 Last Admin: 10/30/17 10:46 Dose: 4 mg NASEEM Pain Assessment Document 10/30/17 10:46 EVER (Rec: 10/30/17 10:47 EVER [id number]) Pain Reassessment Is this a pain reassessment? Yes Presence of Pain Presence of Pain Yes Pain Scale Used Pain Scale Used Numeric Location Upper or Lower Upper Pain Location Body Site Abdomen Description Description Constant Intensity of Pain at present 10 IVP Administration Document 10/30/17 10:46 EVER (Rec: 10/30/17 10:47 EVER [id number]) Charges for Administration # of IVP Administrations 1 Re-Assess: NASEEM Pain Assessment Document 10/30/17 11:46 EVER (Rec: 10/30/17 12:10 EVER [id number]) Pain Reassessment Is this a pain reassessment? Yes Presence of Pain Presence of Pain Yes Pain Scale Used Pain Scale Used Numeric Location Upper or Lower Upper Pain Location Body Site Abdomen Description Intensity of Pain at present 3 Ondansetron HCl (Zofran Inj) 4 mg IVP STAT STA Stop: 10/30/17 10:36 Last Admin: 10/30/17 10:46 Dose: 4 mg IVP Administration Document 10/30/17 10:46 EVER (Rec: 10/30/17 10:46 EVER [id number]) Charges for Administration # of IVP Administrations 1 Disposition/Present on Arrival - Present on Arrival Any Indicators Present on Arrival: No History of DVT/PE: No History of Uncontrolled Diabetes: No Urinary Catheter: No History of Decub. Ulcer: No History Surgical Site Infection Following: None - Disposition Have Diagnosis and Disposition been Completed?: Yes Diagnosis: Epigastric abdominal pain, Gastritis, Hypokalemia, Nausea and vomiting Disposition: HOME/ ROUTINE Disposition Time: 13:59 Patient Plan: Discharge Condition: STABLE Discharge Instructions (ExitCare): Gastritis, Hypokalemia (DC), Nausea and Vomiting, Adult Print Language: PARAGUAYAN Additional Instructions: Make sure to see your doctor in 1-2 days DRINK PLENTY OF FLUIDS BLAND DIET DONT DO DRUGS DONT SMOKE DONT DRINK ALCOHOL take your medications as prescribed RETURN TO ED IF worse pain, cant breath, persistent vomiting, high fever >101- 102 for hours, altered behavior, slurr speech, facial changes, focal weakness ( arm/leg or both), unable to urinate, heavy/persistent bleeding, passing out, chest pain, or other medical emergencies Prescriptions: Aluminum Hydroxide/Magnesium H [Maalox 30 ml] 30 ml PO QID PRN #100 ml PRN Reason: Pain, Mild (1-3) Famotidine [Pepcid] 20 mg PO BID #30 tab Ondansetron ODT [Zofran ODT] 4 mg PO TID PRN #12 odt PRN Reason: Nausea/Vomiting Referrals: Angella Avalos MD [Staff Provider] - Follow up with primary [facility] [Outside] - Follow up with primary [facility] [Outside] - Follow up with primary [facility] [place]] - Follow up with primary Oscar Aaron MD [Staff Provider] - Follow up with primary Forms: [facility] (Somali), WORK NOTE
[2017-10-30 11:25] LABS: VENOUS BLOOD GAS BASE EXCESS 6.2 mmol/L (0.0-2.0); VENOUS BLOOD GAS PO2 154 mm/Hg (30-55); VENOUS BLOOD PH 7.47 (7.32-7.43)
[2017-10-30 11:26] LABS: URINE BILIRUBIN SMALL (NEGATIVE); URINE BLOOD MODERATE (NEGATIVE); URINE GLUCOSE (UA) NEGATIVE (NEGATIVE); URINE LEUKOCYTE ESTERASE NEGATIVE Leu/uL (NEGATIVE); URINE PROTEIN 100 mg/dL (<30 mg/dL)
[2017-10-30 11:27] LABS: BASO # 0.04 K/mm3 (0.0-2.0); BASO % 0.6 % (0.0-3.0); EOS % 0.1 % (1.5-5.0); GRAN # 4.64 (1.4-6.5); GRAN % 65.1 % (50.0-68.0); HEMOGLOBIN 12.5 g/dL (12.0-16.0); LYMPH % 27.7 % (22.0-35.0); MEAN CELL VOLUME 82.3 fl (80.0-105.0); MEAN CORPUSCULAR HGB CONC 34.1 g/dl (31.0-37.0); MEAN PLATELET VOLUME 8.4 fl (7.0-11.0); MONO # 0.5 (0.1-0.6); MONO % 6.5 % (1.0-6.0); RBC 4.46 10^6/uL (3.5-6.1); RED CELL DISTRIBUTION WIDTH 13.2 % (11.5-14.5); WHITE BLOOD COUNT 7.1 10^3/ul (4.5-11.0)
[2017-10-30 11:37] LABS: URINE COLOR YELLOW (YELLOW)
[2017-10-30 11:38] LABS: URINE APPEARANCE CLEAR (CLEAR)
[2017-10-30 11:41] LABS: ALB/GLOB RATIO 1.2 (1.1-1.8); ALBUMIN 4.4 g/dL (3.0-4.8); ALT/SGPT 28 U/L (7-56); AST/SGOT 22 U/L (14-36); BLOOD UREA NITROGEN 10 mg/dL (7-21); CALCIUM 9.2 mg/dL (8.4-10.5); GFR AFRICAN-AMERICAN > 60; GFR NON-AFRICAN AMERICAN > 60; LIPASE 55 U/L (23-300)
[2017-10-30 11:43] LABS: URINE BACTERIA MANY (NEG); URINE RBC 15 - 20 /hpf (0-2)
[2017-10-30 11:44] LABS: URINE AMORPHOUS SEDIMENT FEW
[2017-10-30 12:12] VITALS: BP 109/67; PULSE 56; O2SAT 99
[2017-10-30] MEDS ORDERED: Iohexol 350 MG/100 ML VIAL ONE (12:31)
--- NOTE | 2017-10-30 13:07 | CT ---
PROCEDURE: CT Abdomen and Pelvis with contrast HISTORY: severe diffuse abd pain, hx of pancreatitis/gastri COMPARISON: None. TECHNIQUE: Contrast dose: 100 cc of Omni 350 Radiation dose: Total exam DLP = 549 mGy-cm. This CT exam was performed using one or more of the following dose reduction techniques: Automated exposure control, adjustment of the mA and/or kV according to patient size, and/or use of iterative reconstruction technique. FINDINGS: LOWER THORAX: Unremarkable. LIVER: Unremarkable. No gross lesion or ductal dilatation. GALLBLADDER AND BILE DUCTS: Unremarkable. PANCREAS: Unremarkable. No gross lesion or ductal dilatation. SPLEEN: Unremarkable. ADRENALS: Unremarkable. No mass. KIDNEYS AND URETERS: Unremarkable. No hydronephrosis. No solid mass. VASCULATURE: Unremarkable. No aortic aneurysm. BOWEL: Unremarkable. No obstruction. No gross mural thickening. APPENDIX: Normal appendix. PERITONEUM: Unremarkable. No free fluid. No free air. LYMPH NODES: Unremarkable. No enlarged lymph nodes. BLADDER: Unremarkable. REPRODUCTIVE: Bilateral ovarian cysts. BONES: No acute fracture. OTHER FINDINGS: None. IMPRESSION: No acute intra-abdominal findings
[2017-10-30 14:09] VITALS: RESP 17
== END 2017-10-30 14:07 | disposition home or self-care (01) ==
LOC: ED 10:03
DX: K29.70 Gastritis, unspecified, without bleeding (principal); E87.6 Hypokalemia; R10.13 Epigastric pain; R11.2 Nausea with vomiting, unspecified
CPT/HCPCS: 74177; 80053; 81001; 82803; 83690; 83735; 85025; 96361; 96374; 96375; 99283; J2270; J2405; J7030; Q9967

== ENCOUNTER 2018-01-08 07:47 | Emergency (ER) | payer OTHER ==
[2018-01-08 07:56] VITALS: BMI 28.3
[2018-01-08 07:59] VITALS: RESP 18; O2SAT 96
[2018-01-08] MEDS ORDERED: Sodium Chloride 0.9% 1,000 ML IV STA (08:16)
--- NOTE | 2018-01-08 08:20 | ED PDOC ---
Arrival/HPI - General Chief Complaint: Abdominal Pain Time Seen by Provider: 01/08/18 07:57 Historian: Patient - History of Present Illness Narrative History of Present Illness (Text): 01/08/18 08:15 27 year old female, who presents to the emergency department complaining of diffused abdominal pain since 3 days. Patient associates symptom with nausea and vomiting. She notes being seen at [facility] one day ago for the same problem and d/c home. noted numerous visits with simlar. Patient denies chest pain, shortness of breath, fever, dysuria, back pain, being on any medications, or other complaints. She is allergic to Penicillin and states her LMP was on 2017. 01/08/18 14:24 Time/Duration: < week Symptom Onset: Sudden Symptom Course: Unchanged Context: Home Past Medical History - Provider Review Nursing Documentation Reviewed: Yes - Past History Past History: No Previous - Infectious Disease Hx of Infectious Diseases: None - Tetanus Immunization Tetanus Immunization: Unknown - Cardiac Hx Cardiac Disorders: No - Pulmonary Hx Asthma: No (pt denies) - Neurological Hx Neurological Disorder: No - HEENT Hx HEENT Disorder: No - Renal Hx Renal Disorder: No Hx Kidney Stones: No - Endocrine/Metabolic Hx Endocrine Disorders: No - Hematological/Oncological Hx Blood Disorders: No - Integumentary Hx Dermatological Disorder: No - Musculoskeletal/Rheumatological Hx Musculoskeletal Disorders: Yes - Gastrointestinal Hx Gastritis: Yes Hx Pancreatitis: Yes - Genitourinary/Gynecological Hx Genitourinary Disorders: No - Psychiatric Hx Psychophysiologic Disorder: No Hx Substance Use: Yes (Marijuana) - Anesthesia Hx Anesthesia: No Hx Anesthesia Reactions: No Hx Malignant Hyperthermia: No - Suicidal Assessment Feels Threatened In Home Enviroment: No Family/Social History - Physician Review Nursing Documentation Reviewed: Yes Family/Social History: Unknown Family HX Smoking Status: Current Some Days Smoker Hx Alcohol Use: Yes (occasional) Frequency of alcohol use: Socially Hx Substance Use: Yes (Marijuana) Substance used: marijunnia Hx Substance Use Treatment: No Allergies/Home Meds Allergies/Adverse Reactions: Allergies Penicillins Allergy (Verified 10/30/17 10:25) ANGIOEDEMA Review of Systems - Physician Review All systems were reviewed & negative as marked: Yes - Review of Systems Constitutional: absent: Fevers Respiratory: absent: SOB Cardiovascular: absent: Chest Pain Gastrointestinal: Abdominal Pain, Nausea, Vomiting. absent: Diarrhea, Appetite Changes Physical Exam Vital Signs Reviewed: Yes Vital Signs Temp Pulse Resp BP Pulse Ox 01/08/18 14:18 98 F 62 18 134/82 96 01/08/18 13:50 98 F 62 18 134/82 96 01/08/18 11:48 98.2 F 60 18 148/80 96 01/08/18 07:58 98.0 F 57 L 18 152/83 H 96 Temperature: Afebrile Blood Pressure: Hypertensive Pulse: Bradycardic Respiratory Rate: Normal Appearance: Positive for: Well-Appearing, Non-Toxic, Comfortable Pain Distress: None Mental Status: Positive for: Alert and Oriented X 3 - Systems Exam Head: Present: Atraumatic, Normocephalic Pupils: Present: PERRL Extroacular Muscles: Present: EOMI Conjunctiva: Present: Normal Respiratory/Chest: Present: Clear to Auscultation, Good Air Exchange. No: Respiratory Distress, Accessory Muscle Use, Wheezes, Decreased Breath Sounds, Rales, Retracting, Rhonchi Cardiovascular: Present: Regular Rate and Rhythm, Normal S1, S2. No: Murmurs Abdomen: Present: Tenderness (mild non-focal tenderness, worse epigastric ), Normal Bowel Sounds. No: Distention, Peritoneal Signs, Rebound, Guarding Neurological: Present: GCS=15, CN II-XII Intact, Speech Normal Skin: Present: Warm, Dry, Normal Color. No: Rashes Psychiatric: Present: Alert, Oriented x 3, Normal Insight, Normal Concentration Medical Decision Making ED Course and Treatment: 01/08/18 Impression: 27 year old with non-focal tenderness, worse on epigastric region, complaining of diffused abdominal pain associated with nausea and vomiting since 2 days Plan: -- Labs -- Urinalysis -- Protonix, Zofran, and Sodium Chloride -- Reassess and disposition Prior Visits: Notes and results from previous visits were reviewed. Patient was last seen in the emergency department at [facility] on 01/07/2018 Progress Notes: 01/08/18 10:20 CT abdomen and pelvis: Creator : Zana Vaughan MD COMPARISON: 10/30/17 FINDINGS: LOWER THORAX: Unremarkable. LIVER: Unremarkable. No gross lesion or ductal dilatation. GALLBLADDER AND BILE DUCTS: Unremarkable. PANCREAS: Unremarkable. No gross lesion or ductal dilatation. SPLEEN: Unremarkable. ADRENALS: Unremarkable. No mass. KIDNEYS AND URETERS: Unremarkable. No hydronephrosis. No solid mass. VASCULATURE: Unremarkable. No aortic aneurysm. BOWEL: Unremarkable. No obstruction. No gross mural thickening. APPENDIX: Unremarkable. Normal appendix. PERITONEUM: Unremarkable. No free fluid. No free air. LYMPH NODES: Unremarkable. No enlarged lymph nodes. BLADDER: Unremarkable. REPRODUCTIVE: Unremarkable. BONES: No acute fracture. OTHER FINDINGS: None. IMPRESSION: Unremarkable non contrast enhanced CT of the abdomen and pelvis. 01/08/18 14:25 numerious visits for similar. labs ct neg. advise outpt fu. potassium replaced. - Lab Interpretations Lab Results: 01/08/18 08:30 01/08/18 08:30 Lab Results 01/08/18 08:30: Sodium 140, Potassium 3.3 L, Chloride 104, Carbon Dioxide 26, Anion Gap 13, BUN 8, Creatinine 0.7, Est GFR ( Amer) > 60, Est GFR (Non- Af Amer) > 60, Random Glucose 110, Calcium 8.9, Magnesium 2.0, Total Bilirubin 0.6, AST 14 D, ALT 27, Alkaline Phosphatase 81, Total Protein 7.3, Albumin 4.1 , Globulin 3.2, Albumin/Globulin Ratio 1.3, Lipase 70 01/08/18 08:30: Urine Color Yellow, Urine Appearance Cloudy, Urine pH 6.0, Ur Specific [place] >= 1.030, Urine Protein 30 H, Urine Glucose (UA) Negative, Urine Ketones 40 H, Urine Blood Trace-intact H, Urine Nitrate Negative, Urine Bilirubin Small H, Urine Urobilinogen 1.0 H, Ur Leukocyte Esterase Negative, Urine RBC 2 - 5, Urine WBC 0 - 2, Ur Epithelial Cells 4 - 5, Amorphous Sediment Few, Urine Bacteria Many, Urine Other Uyeast, Urine HCG, Qual Negative 01/08/18 08:30: PT 14.9 H, INR 1.29, APTT 26.1 01/08/18 08:30: WBC 6.3, RBC 4.37, Hgb 12.2, Hct 36.0, MCV 82.4, MCH 27.9, MCHC 33.9, RDW 14.0, Plt Count 276, MPV 8.4, Gran % 70.4 H, Lymph % (Auto) 23.0, [place] % (Auto) 5.1, Eos % (Auto) 1.0 L, Baso % (Auto) 0.5, Gran # 4.40, Lymph # ( Auto) 1.4, [place] # (Auto) 0.3, Eos # (Auto) 0.1, Baso # (Auto) 0.03 I have reviewed the lab results: Yes - RAD Interpretation Radiology Orders: 01/08/18 08:51 ABD & PELVIS IV CONTRAST ONLY [CT] Stat - Medication Orders Current Medication Orders: Discontinued Medications Sodium Chloride (Sodium Chloride 0.9%) 1,000 mls @ 1,000 mls/hr IV .Q1H STA Stop: 01/08/18 09:15 Last Admin: 01/08/18 08:34 Dose: 1,000 mls/hr eMAR Start Stop Document 01/08/18 08:34 SRE (Rec: 01/08/18 08:35 SRE [id number]) Intravenous Solution Start Date 01/08/18 Start Time 08:30 End Date 01/08/18 End time 09:30 Total Infusion Time 60 Potassium Chloride (Potassium Chloride 10 Meq/100 Ml) 10 meq in 100 mls @ 50 mls/hr IVPB Q2H ELIJAH Stop: 01/08/18 13:59 Last Admin: 01/08/18 12:09 Dose: 50 mls/hr eMAR Start Stop Document 01/08/18 12:09 [facility] (Rec: 01/08/18 12:10 [facility]-[id number]) Intravenous Solution Start Date 01/08/18 Start Time 12:09 End Date 01/08/18 End time 14:09 Total Infusion Time 120 Ondansetron HCl (Zofran Inj) 4 mg IVP STAT STA Stop: 01/08/18 08:17 Last Admin: 01/08/18 08:34 Dose: 4 mg IVP Administration Document 01/08/18 08:34 SRE (Rec: 01/08/18 08:34 SRE [id number]) Charges for Administration # of IVP Administrations 1 Ondansetron HCl (Zofran Inj) 4 mg IVP STAT STA Stop: 01/08/18 09:58 Last Admin: 01/08/18 10:15 Dose: 4 mg IVP Administration Document 01/08/18 10:15 SRE (Rec: 01/08/18 10:15 SRE [id number]) Charges for Administration # of IVP Administrations 1 Pantoprazole Sodium (Protonix Inj) 40 mg IVP STAT STA Stop: 01/08/18 08:17 Last Admin: 01/08/18 08:34 Dose: 40 mg IVP Administration Document 01/08/18 08:34 SRE (Rec: 01/08/18 08:34 SRE [id number]) Charges for Administration # of IVP Administrations 1 Potassium Chloride (K-Dur 20 Meq Er Tab) 40 meq PO STAT STA Stop: 01/08/18 08:49 Last Admin: 01/08/18 09:41 Dose: - Scribe Statement The provider has reviewed the documentation as recorded by the Donibe Fang Forman Provider Scribe Attestation: All medical record entries made by the Scribe were at my direction and personally dictated by me. I have reviewed the chart and agree that the record accurately reflects my personal performance of the history, physical exam, medical decision making, and the department course for this patient. I have also personally directed, reviewed, and agree with the discharge instructions and disposition. Disposition/Present on Arrival - Present on Arrival Any Indicators Present on Arrival: No History of DVT/PE: No History of Uncontrolled Diabetes: No Urinary Catheter: No History of Decub. Ulcer: No History Surgical Site Infection Following: None - Disposition Have Diagnosis and Disposition been Completed?: Yes Diagnosis: Abdominal pain Disposition: HOME/ ROUTINE Disposition Time: 02:00 Condition: STABLE Discharge Instructions (ExitCare): Acute Abdomen (Belly Pain), Adult (DC) Additional Instructions: follow up with your doctor/clinic and specialist. yo umay need further testing as an outpatient. return to er with worsening symptoms or concerns. Prescriptions: Famotidine [Pepcid] 20 mg PO DAILY #20 tab Ondansetron ODT [Zofran ODT] 4 mg PO Q8 PRN #10 odt PRN Reason: Nausea/Vomiting Referrals: Octavio Vela MD [Staff Provider] - Follow up with primary Forms: [employer] (Slovak), WORK NOTE
[2018-01-08 08:36] LABS: BASO # 0.03 K/mm3 (0.0-2.0); BASO % 0.5 % (0.0-3.0); EOS # 0.1 (0.0-0.7); GRAN # 4.4 (1.4-6.5); GRAN % 70.4 % (50.0-68.0); HEMOGLOBIN 12.2 g/dL (12.0-16.0); LYMPH # 1.4 (1.2-3.4); MEAN CELL VOLUME 82.4 fl (80.0-105.0); MEAN CORPUSCULAR HEMOGLOBIN 27.9 pg (25.0-35.0); MEAN CORPUSCULAR HGB CONC 33.9 g/dl (31.0-37.0); MEAN PLATELET VOLUME 8.4 fl (7.0-11.0); MONO # 0.3 (0.1-0.6); MONO % 5.1 % (1.0-6.0); RBC 4.37 10^6/uL (3.5-6.1); WHITE BLOOD COUNT 6.3 10^3/ul (4.5-11.0)
[2018-01-08 08:37] LABS: URINE BILIRUBIN SMALL (NEGATIVE); URINE BLOOD TRACE-INTACT (NEGATIVE); URINE GLUCOSE (UA) NEGATIVE (NEGATIVE); URINE LEUKOCYTE ESTERASE NEGATIVE Leu/uL (NEGATIVE); URINE PROTEIN 30 mg/dL (<30 mg/dL)
[2018-01-08 08:38] LABS: URINE COLOR YELLOW (YELLOW)
[2018-01-08 08:40] LABS: HCG,QUALITATIVE URINE NEGATIVE (NEGATIVE)
[2018-01-08 08:42] LABS: INR 1.29; PROTHROMBIN TIME 14.9 SECONDS (9.4-12.5)
[2018-01-08 08:45] LABS: PARTIAL THROMBOPLASTIN TIME 26.1 Seconds (25.1-36.5)
[2018-01-08 08:48] LABS: ALB/GLOB RATIO 1.3 (1.1-1.8); ALBUMIN 4.1 g/dL (3.0-4.8); ALT/SGPT 27 U/L (7-56); AST/SGOT 14 U/L (14-36); BLOOD UREA NITROGEN 8 mg/dL (7-21); CALCIUM 8.9 mg/dL (8.4-10.5); GFR AFRICAN-AMERICAN > 60; GFR NON-AFRICAN AMERICAN > 60; LIPASE 70 U/L (23-300)
[2018-01-08] MEDS ORDERED: Potassium Chloride 20 mEq ER Tab PO STA (08:48)
[2018-01-08 08:55] LABS: URINE AMORPHOUS SEDIMENT FEW; URINE APPEARANCE CLOUDY (CLEAR); URINE BACTERIA MANY (NEG); URINE WBC 0 - 2 /hpf (0-6)
[2018-01-08] MEDS ORDERED: Iohexol 350 MG/100 ML VIAL ONE (08:58)
--- NOTE | 2018-01-08 10:16 | CT ---
Date of service: 01/08/2018 PROCEDURE: CT Abdomen and Pelvis without intravenous contrast HISTORY: abd pain/vomiting COMPARISON: 10/30/17 TECHNIQUE: Technique. Contrast dose: Radiation dose: Total exam DLP = mGy-cm. This CT exam was performed using one or more of the following dose reduction techniques: Automated exposure control, adjustment of the mA and/or kV according to patient size, and/or use of iterative reconstruction technique. FINDINGS: LOWER THORAX: Unremarkable. LIVER: Unremarkable. No gross lesion or ductal dilatation. GALLBLADDER AND BILE DUCTS: Unremarkable. PANCREAS: Unremarkable. No gross lesion or ductal dilatation. SPLEEN: Unremarkable. ADRENALS: Unremarkable. No mass. KIDNEYS AND URETERS: Unremarkable. No hydronephrosis. No solid mass. VASCULATURE: Unremarkable. No aortic aneurysm. BOWEL: Unremarkable. No obstruction. No gross mural thickening. APPENDIX: Unremarkable. Normal appendix. PERITONEUM: Unremarkable. No free fluid. No free air. LYMPH NODES: Unremarkable. No enlarged lymph nodes. BLADDER: Unremarkable. REPRODUCTIVE: Unremarkable. BONES: No acute fracture. OTHER FINDINGS: None. IMPRESSION: Unremarkable non contrast enhanced CT of the abdomen and pelvis.
[2018-01-08 14:18] VITALS: BP 134/82; PULSE 62; TEMP 98
== END 2018-01-08 13:50 | disposition home or self-care (01) ==
LOC: ED 07:47
DX: R10.9 Unspecified abdominal pain (principal)
CPT/HCPCS: 74177; 80053; 81001; 83690; 83735; 84703; 85025; 85610; 85730; 96361; 96374; 96375; 96376; 99284; C9113; J2405; J3480; J7030; Q9967

== ENCOUNTER 2018-06-08 13:57 | Emergency (ER) | payer MEDICAID, OTHER ==
[2018-06-08 14:04] VITALS: BMI 25.7
[2018-06-08] MEDS ORDERED: Capsaicin 0.075% Cream(60 gm) TOP STA (14:16)
[2018-06-08] MEDS ORDERED: Sodium Chloride 0.9% 1,000 ML IV STA (14:16)
--- NOTE | 2018-06-08 14:17 | ED PDOC ---
Arrival/HPI - General Chief Complaint: Abdominal Pain Historian: Patient - History of Present Illness Narrative History of Present Illness (Text): 06/08/18 14:18 28 year old female, with a past medical history of gastritis, esophagitis, pancreatitis, and marijuana usage, presents to the emergency department complaining of abdominal pain, nausea, and vomiting since last night. Patient states she has been unable to stop vomiting (vomiting up blood) and has been experiencing chills since last night. She reports she smoked marijuana last night. Patient denies fevers, headache, dizziness, chest pain, shortness of breath, dyspnea on exertion, cough, diarrhea, back pain, neck pain, dysuria, hematuria, or any other complaint. Time/Duration: 24 hours Symptom Onset: Gradual Symptom Course: Unchanged Activities at Onset: Light Context: Home Past Medical History - Provider Review Nursing Documentation Reviewed: Yes - Past History Past History: No Previous - Infectious Disease Hx of Infectious Diseases: None - Tetanus Immunization Tetanus Immunization: Unknown - Cardiac Hx Cardiac Disorders: No - Pulmonary Hx Asthma: No (pt denies) - Neurological Hx Neurological Disorder: No - HEENT Hx HEENT Disorder: No - Renal Hx Renal Disorder: No Hx Kidney Stones: No - Endocrine/Metabolic Hx Endocrine Disorders: No - Hematological/Oncological Hx Blood Disorders: No - Integumentary Hx Dermatological Disorder: No - Musculoskeletal/Rheumatological Hx Musculoskeletal Disorders: Yes - Gastrointestinal Hx Gastritis: Yes Hx Pancreatitis: Yes - Genitourinary/Gynecological Hx Genitourinary Disorders: No - Psychiatric Hx Psychophysiologic Disorder: No Hx Substance Use: Yes (Marijuana) - Anesthesia Hx Anesthesia: No Hx Anesthesia Reactions: No Hx Malignant Hyperthermia: No - Suicidal Assessment Feels Threatened In Home Enviroment: No Family/Social History - Physician Review Nursing Documentation Reviewed: Yes Family/Social History: No Known Family HX Smoking Status: Light Smoker < 10 Cigarettes Daily Hx Alcohol Use: Yes (occasional) Frequency of alcohol use: Socially Hx Substance Use: Yes (Marijuana) Substance used: marijuana; last used 06/07/2018 Hx Substance Use Treatment: No Allergies/Home Meds Allergies/Adverse Reactions: Allergies Penicillins Allergy (Verified 10/30/17 10:25) ANGIOEDEMA Review of Systems - Physician Review All systems were reviewed & negative as marked: Yes - Review of Systems Constitutional: absent: Fevers Respiratory: absent: SOB, Cough Cardiovascular: absent: Chest Pain Gastrointestinal: Abdominal Pain, Nausea, Vomiting. absent: Diarrhea Genitourinary Female: absent: Dysuria, Hematuria Musculoskeletal: absent: Back Pain, Neck Pain Neurological: absent: Headache Physical Exam Vital Signs Reviewed: Yes Vital Signs Temp Pulse Resp BP Pulse Ox 06/08/18 14:10 98.4 F 62 18 154/75 H 99 Temperature: Afebrile Blood Pressure: Hypertensive Pulse: Regular Respiratory Rate: Normal Appearance: Positive for: Well-Appearing, Non-Toxic, Comfortable Pain Distress: None Mental Status: Positive for: Alert and Oriented X 3, Lethargic - Systems Exam Head: Present: Atraumatic, Normocephalic Pupils: Present: PERRL Extroacular Muscles: Present: EOMI Conjunctiva: Present: Normal Mouth: Present: Moist Mucous Membranes Neck: Present: Normal Range of Motion Respiratory/Chest: Present: Clear to Auscultation, Good Air Exchange. No: Respiratory Distress, Accessory Muscle Use Cardiovascular: Present: Regular Rate and Rhythm, Normal S1, S2. No: Murmurs Abdomen: Present: Tenderness (diffuse abdmonial tenderness). No: Distention, Peritoneal Signs Back: Present: Normal Inspection Upper Extremity: Present: Normal Inspection. No: Cyanosis, Edema Lower Extremity: Present: Normal Inspection. No: Edema Neurological: Present: GCS=15, CN II-XII Intact, Speech Normal Skin: Present: Warm, Dry, Normal Color. No: Rashes Psychiatric: Present: Alert, Oriented x 3, Normal Insight, Normal Concentration, Lethargic Medical Decision Making ED Course and Treatment: 06/08/18 14:27 Impression: 28 year old female who presents to the emergency department complaining of abdominal pain, nausea, and vomiting. Differential Diagnosis included but are not limited to: cannabinoid hypertemesis syndrome Plan: -- Labs -- IV Fluids -- Zofran -- Zostrix-HP -- Urinalysis -- POC urine -- Reassess and disposition Prior Visits: Notes and results from previous visits were reviewed. Progress Notes: - Scribe Statement The provider has reviewed the documentation as recorded by the Doniblaila Arce Provider Scribe Attestation: All medical record entries made by the Scribe were at my direction and personally dictated by me. I have reviewed the chart and agree that the record accurately reflects my personal performance of the history, physical exam, medical decision making, and the department course for this patient. I have also personally directed, reviewed, and agree with the discharge instructions and disposition. Disposition/Present on Arrival - Present on Arrival Any Indicators Present on Arrival: No History of DVT/PE: No History of Uncontrolled Diabetes: No Urinary Catheter: No History of Decub. Ulcer: No History Surgical Site Infection Following: None - Disposition Have Diagnosis and Disposition been Completed?: Yes Diagnosis: Cannabinoid hyperemesis syndrome, Marijuana abuse Disposition: HOME/ ROUTINE Disposition Time: 15:29 Patient Plan: Discharge Patient Problems: Current Active Problems Problem Status Onset Marijuana abuse Acute Cannabinoid hyperemesis syndrome Acute Condition: IMPROVED Discharge Instructions (ExitCare): Marijuana Use and Addiction (DC) Print Language: MOROCC[place] Additional Instructions: All medical record entries made by the Scribe were at my direction and per sonally dictated by me. I have reviewed the chart and agree that the record accurately reflects my personal performance of the history, physical exam, medical decision making, and the department course for this patient. I have also personally directed, reviewed, and agree with the discharge instructions and disposition. Prescriptions: Capsaicin 60 gm TP Q6H #1 cream..g. Referrals: PCP,NO [Primary Care Provider] - Follow up with primary Forms: [employer] (Telugu), WORK NOTE
[2018-06-08 14:18] VITALS: RESP 18; O2SAT 99
[2018-06-08 15:18] LABS: BASO # 0.01 K/mm3 (0.0-2.0); BASO % 0.1 % (0.0-3.0); GRAN # 8.5 (1.4-6.5); GRAN % 87.3 % (50.0-68.0); HEMOGLOBIN 12.8 g/dL (12.0-16.0); LYMPH % 9.9 % (22.0-35.0); MEAN CELL VOLUME 82.8 fl (80.0-105.0); MEAN CORPUSCULAR HEMOGLOBIN 27.9 pg (25.0-35.0); MEAN CORPUSCULAR HGB CONC 33.7 g/dl (31.0-37.0); MEAN PLATELET VOLUME 8.3 fl (7.0-11.0); MONO # 0.3 (0.1-0.6); MONO % 2.7 % (1.0-6.0); RBC 4.59 10^6/uL (3.5-6.1); RED CELL DISTRIBUTION WIDTH 13.3 % (11.5-14.5); WHITE BLOOD COUNT 9.7 10^3/uL (4.5-11.0)
[2018-06-08 15:25] LABS: BLOOD UREA NITROGEN 10 mg/dL (7-21); GFR NON-AFRICAN AMERICAN > 60
[2018-06-08 15:26] LABS: ALB/GLOB RATIO 1.2 (1.1-1.8); ALBUMIN 4.8 g/dL (3.0-4.8); ALT/SGPT 23 U/L (7-56); AST/SGOT 27 U/L (14-36); CALCIUM 9.7 mg/dL (8.4-10.5); LIPASE 27 U/L (23-300)
[2018-06-08 15:38] LABS: URINE APPEARANCE CLEAR (CLEAR); URINE BILIRUBIN NEGATIVE (NEGATIVE); URINE BLOOD NEGATIVE (NEGATIVE); URINE COLOR YELLOW (YELLOW); URINE GLUCOSE (UA) NEGATIVE (NEGATIVE); URINE LEUKOCYTE ESTERASE NEGATIVE Leu/uL (NEGATIVE); URINE PROTEIN 30 mg/dL (<30 mg/dL); URINE UROBILINOGEN 0.2 E.U./dL (<1 E.U./dL)
[2018-06-08 15:43] LABS: BARBITURATES, UR NEGATIVE (NEGATIVE); BENZODIAZEPINES, UR NEGATIVE (NEGATIVE); OPIATES, UR NEGATIVE (NEGATIVE); PHENCYCLIDINE, UR NEGATIVE (NEGATIVE)
[2018-06-08 15:49] LABS: URINE RBC 0 - 2 /hpf (0-2); URINE WBC NEGATIVE /hpf (0-6)
[2018-06-08 16:23] VITALS: BP 139/76; PULSE 66; TEMP 98.1
== END 2018-06-08 16:24 | disposition home or self-care (01) ==
LOC: ED 13:57
DX: F12.129 Cannabis abuse with intoxication, unspecified (principal); K85.90 Acute pancreatitis without necrosis or infection, unspecified; F17.210 Nicotine dependence, cigarettes, uncomplicated
CPT/HCPCS: 80053; 81001; 83690; 85025; 96374; 99284; G0480; J2405; J7030